=== PATIENT | male | born 1960 | race Caucasian/White ===

== ENCOUNTER 2016-04-21 13:59 | Emergency (ER) | payer OTHER ==
[~2016-04-21 13:59] MED LIST: ASPI81TA45 PO; DEPA125T PO; FLUO-1 PO; GABA100C2 PO; RESPERDAL PO
[2016-04-21 14:13] VITALS: BP 146/88; PULSE 94; RESP 16; TEMP 98.4; O2SAT 98
--- NOTE | 2016-04-21 14:20 | PD ---
HPI Chief Complaint: Psychiatric Symptoms Time Seen by Provider: 14:15 Travel History International Travel<30 days: No Contact w/Intl Traveler<30days: No History of Present Illness HPI 55-year-old male presents to the emergency Department under Esparza act by local police. According the Isaias, the patient has been depressed. He had suicidal ideations of jumping off the 11th floor. The patient states that he has been depressed for the last few days. He does report a history of depression. He denies hurting himself in any way. Patient denies any history of suicide attempts. He states that he was feeling suicidal previously, but states right now he is not feeling is vital. Patient states he drinks a sixpack of alcohol a day. He also smokes tobacco and marijuana. He states he has drinks 6 packs a sixpack today already. Patient does state that he is having chronic abdominal pain that he's had for months. He states is in the right upper quadrant. He also reports bright red blood in his stool for over a month. Patient states that he "eats Tylenol" due to chronic pain. Does report a history of hypertension and CVA 2, but takes no chronic medications. PFSH Past Medical History Arthritis: Yes (KNEES AND ANKLES) Asthma: No Bipolar Disorder: Yes Anxiety: Yes Depression: Yes Heart Rhythm Problems: No Cancer: No Cardiovascular Problems: Yes High Cholesterol: No Chest Pain: Yes Congestive Heart Failure: No COPD: No Cerebrovascular Accident: Yes (X 2 RIGHT SIDE WEAKNESS) Diabetes: No Diminished Hearing: No Endocrine: No GERD: No Genitourinary: No Hiatal Hernia: No Hypertension: Yes Insomnia: Yes Kidney Stones: No Musculoskeletal: Yes Neurologic: No Psychiatric: Yes Reproductive: No Respiratory: No Immunizations Current: No Migraines: No Pancreatitis: Yes (DENIES, IN PT HX) Renal Failure: No Schizophrenia: Yes Seizures: No Sleep Apnea: No Thyroid Disease: No Ulcer: No Past Surgical History Abdominal Surgery: No Arteriovenous Shunt: No Cardiac Surgery: No Ear Surgery: No Endocrine Surgery: No Eye Surgery: No Genitourinary Surgery: No Insulin Pump: No Oral Surgery: No Thoracic Surgery: No Tonsillectomy: Yes Other Surgery: Yes Social History Alcohol Use: Yes (ADMITS TO DRINKING 12 BEERS DAILY) Tobacco Use: Yes (2 PPD) Substance Use: Yes (A LITTLE WEED ONCE IN A WHILE) Allergies-Medications (Allergen,Severity, Reaction): Coded Allergies: Morphine (Verified Allergy, Severe, Rash, 04/21/16) Reported Meds & Prescriptions Reported Meds & Active Scripts Active No Active Prescriptions or Reported Medications Review of Systems Except as stated in HPI: all other systems reviewed are Neg Physical Exam Narrative GENERAL: Well-developed well-nourished male patient, ambulatory. Afebrile. SKIN: Warm and dry. HEAD: Normocephalic. Atraumatic. EYES: No scleral icterus. No injection or drainage. NECK: Supple, trachea midline. No JVD or lymphadenopathy. CARDIOVASCULAR: Regular rate and rhythm without murmurs, gallops, or rubs. RESPIRATORY: Breath sounds equal bilaterally. No accessory muscle use. Lungs sounds are clear to auscultation. GASTROINTESTINAL: Abdomen soft and nondistended. Patient has tenderness of the right upper quadrant. MUSCULOSKELETAL: No cyanosis, or edema. BACK: Nontender without obvious deformity. No CVA tenderness. PSYCHIATRIC: No delusional thought processes. No hallucinations. Data Data Last Documented VS Vital Signs Date Time Temp Pulse Resp B/P Pulse Ox O2 Delivery O2 Flow Rate FiO2 04/21/16 19:27 84 18 04/21/16 19:27 142/87 95 Room Air 04/21/16 14:13 98.4 Orders Complete Blood Count With Diff (04/21/16 14:14) Comprehensive Metabolic Panel (04/21/16 14:14) Drug Screen, Random Urine (04/21/16 14:14) Alcohol (Ethanol) (04/21/16 14:14) Salicylates (Aspirin) (04/21/16 14:14) Tylenol (Acetaminophen) (04/21/16 14:14) Psych Screen (04/21/16 14:14) Us Abdomen Gallbladder (04/21/16 ) Diet Regular Basic (04/21/16 Dinner) Lipase (04/21/16 14:50) Ct Abd/Pel W Iv Contrast(Rout) (04/21/16 ) Labs Laboratory Tests Test 04/21/16 04/21/16 14:11 14:50 Urine Opiates Screen NEG Urine Barbiturates Screen NEG Urine Amphetamines Screen NEG Urine Benzodiazepines Screen NEG Urine Cocaine Screen NEG Urine Cannabinoids Screen NEG White Blood Count 6.3 TH/MM3 Red Blood Count 5.03 MIL/MM3 Hemoglobin 17.3 GM/DL Hematocrit 49.0 % Mean Corpuscular Volume 97.5 FL Mean Corpuscular Hemoglobin 34.4 PG Mean Corpuscular Hemoglobin 35.3 % Concent Red Cell Distribution Width 13.1 % Platelet Count 216 TH/MM3 Mean Platelet Volume 8.1 FL Neutrophils (%) (Auto) 44.5 % Lymphocytes (%) (Auto) 47.0 % Monocytes (%) (Auto) 7.6 % Eosinophils (%) (Auto) 0.4 % Basophils (%) (Auto) 0.5 % Neutrophils # (Auto) 2.8 TH/MM3 Lymphocytes # (Auto) 3.0 TH/MM3 Monocytes # (Auto) 0.5 TH/MM3 Eosinophils # (Auto) 0.0 TH/MM3 Basophils # (Auto) 0.0 TH/MM3 CBC Comment DIFF FINAL Differential Comment Sodium Level 143 MEQ/L Potassium Level 4.0 MEQ/L Chloride Level 110 MEQ/L Carbon Dioxide Level 23.0 MEQ/L Anion Gap 10 MEQ/L Blood Urea Nitrogen 5 MG/DL Creatinine 0.67 MG/DL Estimat Glomerular Filtration 122 ML/MIN Rate Random Glucose 94 MG/DL Calcium Level 8.5 MG/DL Total Bilirubin 0.2 MG/DL Aspartate Amino Transf 45 U/L (AST/SGOT) Alanine Aminotransferase 46 U/L (ALT/SGPT) Alkaline Phosphatase 58 U/L Total Protein 8.0 GM/DL Albumin 3.9 GM/DL Lipase 1383 U/L Salicylates Level 4.6 MG/DL Acetaminophen Level LESS THAN 2.0 MCG/ML Ethyl Alcohol Level 297 MG/DL MDM Medical Decision Making Medical Screen Exam Complete: Yes Emergency Medical Condition: Yes Medical Record Reviewed: Yes Interpretation(s) RUQ US- CONCLUSION: 1. No acute abnormality seen of the gallbladder/right upper quadrant. 2. Small benign-appearing cyst of the right kidney incidentally noted. Differential Diagnosis Depression versus anxiety versus bipolar versus chronic abdominal pain versus cholelithiasis versus lower GI bleed Narrative Course 55-year-old male presents to the emergency department her Esparza to the local police for suicidal ideation and depression. On exam, he complains of chronic right upper quadrant pain for over a month as well as chronic bright red blood in his stool for over a month. CBC, CMP, lipase, alcohol level, urine drug screen, Tylenol level, salicylate level are ordered and pending. Patient declines Hemoccult. CBC shows no evidence of anemia, hemoglobin 17.3, hematocrit 49.0. CMP shows elevated AST of 45. Lipase is 1383. Alcohol level is 297. Tylenol level is 297. Salicylate level is 4.6. Urine drug screen is negative. RUQ US shows No acute abnormality seen of the gallbladder/right upper quadrant; small benign- appearing cyst of the right kidney incidentally noted. 1944 - Patient eloped while waiting for CT. Nurse will notify police that patient eloped. Diagnosis Primary Impression: At risk for elopement from healthcare setting Scripts No Active Prescriptions or Reported Meds Disposition: 07 AGAINST MEDICAL ADVICE Mago Alejandra Apr 21, 2016 14:20
--- NOTE | 2016-04-21 15:32 | RADRPT ---
EXAM DATE/TIME: 04/21/2016 15:01 [facility] COMPARISON: No previous studies available for comparison. INDICATIONS : Right upper quadrant pain. MEDICAL HISTORY : Hypertension. Esparza Act. Bipolar. ETOH. CVA. SURGICAL HISTORY : Tonsillectomy. ENCOUNTER: Initial ACUITY: 3 months PAIN SCORE: 8/10 LOCATION: Right upper quadrant MEASUREMENTS: LIVER: 16.5 cm length COMMON DUCT: 4 mm RIGHT KIDNEY: 10.5 x 5.5 x 5.6 cm FINDINGS: LIVER: Normal echotexture without focal lesion or ductal dilatation. There is normal flow velocity and direc tion in the main portal vein. COMMON DUCT: No intraluminal mass or stone visualized. GALLBLADDER: Contains no stones, demonstrates no wall thickening or pericholecystic fluid. PANCREAS: The visualized portions are within normal limits. RIGHT KIDNEY: 14 mm lower pole cyst. No hydronephrosis. CONCLUSION: 1. No acute abnormality seen of the gallbladder/right upper quadrant. 2. Small benign-appearing cyst of the right kidney incidentally noted. True Dumont MD on April 21, 2016 at 15:29 Board Certified Radiologist. This report was verified electronically.
[2016-04-21 15:33] LABS: AUTOMATED NEUTROPHIL # 2.8 TH/MM3 (1.8-7.7); BASOPHIL % 0.5 % (0.0-2.0); EOSINOPHIL % 0.4 % (0.0-4.0); HEMO FLAGS DIFF FINAL; MEAN CELL VOLUME 97.5 FL (80.0-100.0); MEAN CORPUSCULAR HEMOGLOBIN 34.4 PG (27.0-34.0); MEAN CORPUSCULAR HGB CONC 35.3 % (32.0-36.0); MONO % 7.6 % (0.0-8.0); NEUT % 44.5 % (16.0-70.0); PLATELET COUNT 216 TH/MM3 (150-450); RED BLOOD COUNT 5.03 MIL/MM3 (4.50-5.90); RED CELL DISTRIBUTION WIDTH 13.1 % (11.6-17.2); WHITE BLOOD COUNT 6.3 TH/MM3 (4.0-11.0)
[2016-04-21 15:37] LABS: AMPHETAMINE, URINE NEG (NEG); BARBITURATES, URINE NEG (NEG); COCAINE, URINE NEG (NEG)
[2016-04-21 16:12] LABS: ALT (GPT) 46 U/L (12-78); ANION GAP 10 MEQ/L (5-15); AST (GOT) 45 U/L (15-37); BLOOD UREA NITROGEN 5 MG/DL (7-18); CHLORIDE 110 MEQ/L (98-107); GLOMERULAR FILTRATION RATE 122 ML/MIN (>89); SODIUM (NA) 143 MEQ/L (136-145)
[2016-04-21 16:15] LABS: ALKALINE PHOSPHATASE 58 U/L (45-117); TOTAL BILIRUBIN ADULT 0.2 MG/DL (0.2-1.0)
[2016-04-21 16:16] LABS: ACETAMINOPHEN LESS THAN 2.0 MCG/ML (10.0-30.0)
[2016-04-21 19:27] VITALS: BP 142/87; PULSE 86; RESP 16; O2SAT 95
[2016-04-23] MEDS ORDERED: IBUP800T23 PO (11:46)
[2016-04-23] MEDS ORDERED: CYCL1TAB29 PO (11:46)
== END 2016-04-22 05:54 | disposition left against medical advice (07) ==
LOC: NEDAMB 13:59 → NEPE 04-22 05:54
DX: Z53.21 Procedure and treatment not carried out due to patient leaving prior to being seen by health care provider (principal); K92.1 Melena; R10.9 Unspecified abdominal pain; I10 Essential (primary) hypertension; F17.210 Nicotine dependence, cigarettes, uncomplicated; F12.10 Cannabis abuse, uncomplicated; F10.10 Alcohol abuse, uncomplicated
CPT/HCPCS: 76705; 80053; 80307; 80320; 80329; 83690; 85025; G0480

== ENCOUNTER 2016-04-23 09:33 | Emergency (ER) | payer SELFPAY ==
[~2016-04-23] VITALS: Ht 177.8 cm; Wt 82.0 kg
[2016-04-23 09:35] VITALS: BP 176/111; PULSE 78; RESP 16; TEMP 97.7; O2SAT 98
[2016-04-23] MEDS ORDERED: CYCLOBENZAPRINE HCL 10 MG TAB PO ONE (11:00)
--- NOTE | 2016-04-23 11:13 | PD ---
HPI Chief Complaint: Back/ Neck Pain or Injury Time Seen by Provider: 10:50 Travel History International Travel<30 days: No Contact w/Intl Traveler<30days: No Traveled to known affect area: No History of Present Illness HPI Patient is a 55-year-old male who presented to the emergency department for evaluation of low back pain. Patient denies any injury or trauma, he states it' s been going on for approximately one week. He states she's been taking Tylenol for pain. Has had no relief. Patient also reports being in the emergency department a few days ago due to abdominal pain but denies any abdominal pain at this time. He states his pain is a 6 out of 10 and describes as cramping and aching. Patient denies any bladder or bowel incontinence, no saddle paresthesia, no weakness in his lower extremities. PFSH Past Medical History Arthritis: Yes (KNEES AND ANKLES) Asthma: No Bipolar Disorder: Yes Anxiety: Yes Depression: Yes Heart Rhythm Problems: No Cancer: No Cardiovascular Problems: Yes High Cholesterol: No Chest Pain: Yes Congestive Heart Failure: No COPD: No Cerebrovascular Accident: Yes (X 2 RIGHT SIDE WEAKNESS) Diabetes: No Diminished Hearing: No Endocrine: No GERD: No Genitourinary: No Hiatal Hernia: No Hypertension: Yes Insomnia: Yes Kidney Stones: No Musculoskeletal: Yes Neurologic: No Psychiatric: Yes Reproductive: No Respiratory: No Immunizations Current: No Migraines: No Pancreatitis: Yes (DENIES, IN PT HX) Renal Failure: No Schizophrenia: Yes Seizures: No Sleep Apnea: No Thyroid Disease: No Ulcer: No Past Surgical History Abdominal Surgery: No Arteriovenous Shunt: No Cardiac Surgery: No Ear Surgery: No Endocrine Surgery: No Eye Surgery: No Genitourinary Surgery: No Insulin Pump: No Oral Surgery: No Thoracic Surgery: No Tonsillectomy: Yes Other Surgery: Yes Social History Alcohol Use: Yes (ADMITS TO DRINKING 12 BEERS DAILY) Tobacco Use: Yes (2 PPD) Substance Use: Yes (MARIJUANA) Allergies-Medications (Allergen,Severity, Reaction): Coded Allergies: Morphine (Verified Allergy, Severe, Rash, 04/23/16) Reported Meds & Prescriptions Reported Meds & Active Scripts Active No Active Prescriptions or Reported Medications Review of Systems Except as stated in HPI: all other systems reviewed are Neg Musculoskeletal: Positive: Myalgias, Cramping, Pain Neurologic: No: Weakness Psychiatric: No: Suicidal Ideations, Homicidal Ideation Physical Exam Narrative GENERAL: Well, well-nourished, alert male. Resting comfortably in no acute distress. SKIN: Warm and dry. HEAD: Atraumatic. Normocephalic. EYES: Pupils equal and round. No scleral icterus. No injection or drainage. ENT: No nasal bleeding or discharge. Mucous membranes pink and moist. NECK: Trachea midline. No JVD. CARDIOVASCULAR: Regular rate and rhythm. No murmur appreciated. RESPIRATORY: No accessory muscle use. Clear to auscultation. Breath sounds equal bilaterally. GASTROINTESTINAL: Abdomen soft, non-tender, nondistended. Hepatic and splenic margins not palpable. MUSCULOSKELETAL: No obvious deformities. No clubbing. No cyanosis. No edema. Illness palpation in paraspinal musculature in the lumbar region right is worse on the left. 5/5 muscle strength in bilateral lower extremities. Patient is neurovascularly intact. NEUROLOGICAL: Awake and alert. No obvious cranial nerve deficits. Motor grossly within normal limits. Normal speech. PSYCHIATRIC: Appropriate mood and affect; insight and judgment normal. Data Data Last Documented VS Vital Signs Date Time Temp Pulse Resp B/P Pulse Ox O2 Delivery O2 Flow Rate FiO2 04/23/16 09:35 97.7 78 16 176/111 98 Room Air Orders Cyclobenzaprine (Flexeril) (04/23/16 11:00) MDM Medical Decision Making Medical Screen Exam Complete: Yes Emergency Medical Condition: Yes Medical Record Reviewed: Yes Interpretation(s) Vital Signs Date Time Temp Pulse Resp B/P Pulse Ox O2 Delivery O2 Flow Rate FiO2 04/23/16 09:35 97.7 78 16 176/111 98 Room Air Differential Diagnosis Strain versus sprain versus spasm versus discogenic pain versus other Narrative Course Patient is a 55-year-old male who presented to emergency department for evaluation of low back pain. He also reports being in the emergency department a few days ago stating that he had to leave and left. He reports at that time he had abdominal pain which has since resolved. Upon review of medical records patient was brought in on April 21, 2016 under Esparza act for suicidal ideations. Patient was clinically intoxicated at that time, ultrasound of gallbladder was negative, patient had eloped from the emergency department. At this time he denies any suicidal or homicidal ideations. He states that he quit drinking, and is trying to get cleaned up. His physical examination today is consistent with lumbar strain, spasm, he was given Flexeril in the emergency department. Patient reports some improvement in his back pain with the Flexeril. Again patient denies any suicidal or homicidal ideations. Patient encouraged follow- up with his primary care provider return to emergency department new or worsening symptoms. He was encouraged to continue to avoid alcohol intake. He was encouraged to return to emergency department if he began to feel depressed or suicidal. Patient verbalized understanding of instructions. Patient is stable for discharge. Diagnosis Primary Impression: Spasm of lumbar paraspinous muscle Additional Impression: Strain of lumbar paraspinal muscle Qualified Code: S39.012A - Strain of lumbar paraspinal muscle, initial encounter Referrals: [facility] Primary Care Physician [facility] Patient Instructions: General Instructions, Muscle Spasm (ED), Muscle Strain ( ED) Additional Instructions: Return to emergency department initially for any new or worsening symptoms Continue to avoid alcohol Return to emergency department if you have any worsening depression or suicidal ideations Can follow-up with the [facility] for further alcohol dependence treatment Take medications as directed Apply warm moist heat to affected area, continue range of motion exercises, avoid bed rest. Med/Other Pt SpecificInfo: Prescription(s) given Scripts Cyclobenzaprine (Flexeril)10 Mg Tab10 Mg PO TID PRN (MUSCLE SPASM) 10 Days Ref 0 Prov:Cindy Bah 04/23/16 Ibuprofen 800 Mg [id number] Mg PO Q8H PRN (Pain/Inflammation) #60 TAB Ref 0 Prov:Cindy Bah 04/23/16 Disposition: 01 DISCHARGE HOME Condition: Stable Cindy Bah Apr 23, 2016 11:13
[2016-04-23] MEDS ORDERED: IBUP800T23 PO (11:46)
[2016-04-23] MEDS ORDERED: CYCL1TAB29 PO (11:46)
== END 2016-04-23 12:09 | disposition home or self-care (01) ==
LOC: NEPB 09:33
DX: M62.830 Muscle spasm of back (principal); S39.012A Strain of muscle, fascia and tendon of lower back, initial encounter; I10 Essential (primary) hypertension; F10.10 Alcohol abuse, uncomplicated; F17.210 Nicotine dependence, cigarettes, uncomplicated; F12.90 Cannabis use, unspecified, uncomplicated; Z86.73 Personal history of transient ischemic attack (TIA), and cerebral infarction without residual deficits
CPT/HCPCS: 99283

== ENCOUNTER 2016-11-12 20:46 | Emergency (ER) | payer OTHER ==
[~2016-11-12 20:46] MED LIST changes: -ASPI81TA45 PO; +CYCL1TAB29 PO; -DEPA125T PO; -FLUO-1 PO; -GABA100C2 PO; +IBUP800T23 PO; -RESPERDAL PO
[2016-11-12 20:58] VITALS: BP 121/82; PULSE 89; RESP 18; TEMP 97.8
--- NOTE | 2016-11-12 21:28 | PD ---
HPI Chief Complaint: Psychiatric Symptoms Time Seen by Provider: 21:14 Travel History International Travel<30 days: No Contact w/Intl Traveler<30days: No Traveled to known affect area: No History of Present Illness HPI This patient is brought in under police Espraza act. Patient was having suicidal ideation. Patient has history of depression. Symptoms of moderate severity. He is a heavy drinker on a daily basis. He was drinking heavily today. He denies any drugs or substances other than alcohol. No alleviating factors. Duration 2 weeks. PFSH Past Medical History Arthritis: Yes (KNEES AND ANKLES) Asthma: No Bipolar Disorder: Yes Anxiety: Yes Depression: Yes Heart Rhythm Problems: No Cancer: No Cardiovascular Problems: Yes High Cholesterol: No Chest Pain: Yes Congestive Heart Failure: No COPD: No Cerebrovascular Accident: Yes Diabetes: No Diminished Hearing: No Endocrine: No GERD: No Genitourinary: No Hiatal Hernia: No Hypertension: Yes Insomnia: Yes Kidney Stones: No Musculoskeletal: Yes Neurologic: No Psychiatric: Yes Reproductive: No Respiratory: No Immunizations Current: No Migraines: No Pancreatitis: Yes (DENIES, IN PT HX) Renal Failure: No Schizophrenia: Yes Seizures: No Sleep Apnea: No Thyroid Disease: No Ulcer: No Past Surgical History Abdominal Surgery: No Arteriovenous Shunt: No Cardiac Surgery: No Ear Surgery: No Endocrine Surgery: No Eye Surgery: No Genitourinary Surgery: No Insulin Pump: No Oral Surgery: No Thoracic Surgery: No Tonsillectomy: Yes Other Surgery: Yes Social History Alcohol Use: Yes (ADMITS TO DRINKING 12 BEERS DAILY) Tobacco Use: Yes (2 PPD) Substance Use: Yes (MARIJUANA) Allergies-Medications (Allergen,Severity, Reaction): Coded Allergies: Morphine (Verified Allergy, Severe, Rash, 11/12/16) Reported Meds & Prescriptions Reported Meds & Active Scripts Active No Active Prescriptions or Reported Medications Review of Systems General / Constitutional: No: Fever Eyes: No: Visual changes HENT: No: Headaches Cardiovascular: No: Chest Pain or Discomfort Respiratory: No: Shortness of Breath Gastrointestinal: No: Abdominal Pain Genitourinary: No: Dysuria Musculoskeletal: No: Pain Skin: Positive Rash, Positive Itching Neurologic: No: Weakness Psychiatric: Positive: Depression, Suicidal Ideations, Substance Abuse Endocrine: No: Polydipsia Hematologic/Lymphatic: No: Easy Bruising Physical Exam Narrative GENERAL: Well-nourished, well-developed patient in no apparent distress. SKIN: Focused skin assessment reveals diffuse scabbed lesions on both forearms also on the legs. Skin is Warm and dry. HEAD: Atraumatic. Normocephalic. EYES: Pupils equal and round. No scleral icterus. No injection or drainage. ENT: No nasal bleeding or discharge. Mucous membranes pink and moist. NECK: Trachea midline. No JVD. CARDIOVASCULAR: Regular rate and rhythm. No murmur appreciated. RESPIRATORY: No accessory muscle use. Clear to auscultation. Breath sounds equal bilaterally. GASTROINTESTINAL: Abdomen soft, non-tender, nondistended. Hepatic and splenic margins not palpable. MUSCULOSKELETAL: No obvious deformities. No clubbing. No cyanosis. No edema. NEUROLOGICAL: Awake and alert. No obvious cranial nerve deficits. Motor grossly within normal limits. Normal speech. PSYCHIATRIC: Depressed mood and flat affect; insight and judgment poor . Data Data Last Documented VS Vital Signs Date Time Temp Pulse Resp B/P Pulse Ox O2 Delivery O2 Flow Rate FiO2 11/12/16 20:58 97.8 89 18 121/82 Orders Complete Blood Count With Diff (11/12/16 21:25) Comprehensive Metabolic Panel (11/12/16 21:25) Iv Access Insert/Monitor (11/12/16 21:25) Psych Screen (11/12/16 21:25) Drug Screen, Random Urine (11/12/16 21:25) Alcohol (Ethanol) (11/12/16 21:25) MDM Medical Decision Making Medical Screen Exam Complete: Yes Emergency Medical Condition: Yes Medical Record Reviewed: Yes Differential Diagnosis Alcohol intoxication, depression, suicidal ideation Narrative Course I have reviewed the patient's electronic medical record. Medical screening workup has been ordered and will be reviewed when complete. I Have ordered psychiatric screening as he is here under Esparza act May have bed bugs or just a lot of picked at scabbed lesions difficult to say. They do not require emergent treatment Diagnosis Primary Impression: Depression with suicidal ideation Additional Impression: Alcoholism Scripts No Active Prescriptions or Reported Meds Jeremías Bateman MD Nov 12, 2016 21:28
[2016-11-12 23:41] LABS: AMPHETAMINE, URINE NEG (NEG); BARBITURATES, URINE NEG (NEG); COCAINE, URINE NEG (NEG)
[2016-11-13 00:25] LABS: AUTOMATED NEUTROPHIL # 3.9 TH/MM3 (1.8-7.7); BASOPHIL % 0.5 % (0.0-2.0); EOSINOPHIL # 0.4 TH/MM3 (0-0.4); EOSINOPHIL % 5.1 % (0.0-4.0); HEMATOCRIT 47.6 % (39.0-51.0); HEMO FLAGS DIFF FINAL; LYMPH % 31.4 % (9.0-44.0); LYMPHOCYTE # 2.3 TH/MM3 (1.0-4.8); MEAN CELL VOLUME 99.9 FL (80.0-100.0); MEAN CORPUSCULAR HEMOGLOBIN 35.7 PG (27.0-34.0); MEAN CORPUSCULAR HGB CONC 35.7 % (32.0-36.0); PLATELET COUNT 176 TH/MM3 (150-450); RED BLOOD COUNT 4.77 MIL/MM3 (4.50-5.90); RED CELL DISTRIBUTION WIDTH 12.7 % (11.6-17.2); WHITE BLOOD COUNT 7.4 TH/MM3 (4.0-11.0)
[2016-11-13 00:37] LABS: ANION GAP 11 MEQ/L (5-15); AST (GOT) 90 U/L (15-37); BICARBONATE 25.2 MEQ/L (21.0-32.0); BLOOD UREA NITROGEN 7 MG/DL (7-18); CHLORIDE 107 MEQ/L (98-107); GLOMERULAR FILTRATION RATE 105 ML/MIN (>89); SODIUM (NA) 143 MEQ/L (136-145)
[2016-11-13 00:40] LABS: ALKALINE PHOSPHATASE 61 U/L (45-117); ALT (GPT) 55 U/L (12-78); TOTAL BILIRUBIN ADULT 0.4 MG/DL (0.2-1.0)
[2016-11-13] MEDS ORDERED: FLUMAZENIL 0.5 MG/5 ML VIAL IV PUSH PRN (02:45)
[2016-11-13] MEDS ORDERED: LORazepam 2 MG TAB PO PRN (02:45)
[2016-11-13] MEDS ORDERED: LORazepam 1 MG TAB PO PRN (02:45)
[2016-11-13] MEDS ORDERED: LORazepam 2 MG/ML VIAL IV PUSH PRN ×4 (02:45)
[2016-11-13 04:53] VITALS: BP 122/68; PULSE 80; RESP 16
[2016-11-13 07:20] VITALS: BP 135/91; PULSE 86; RESP 16; O2SAT 97
--- NOTE | 2016-11-13 13:27 | PD.PSY.CON ---
Provisional Diagnosis Admission Date [place] I. Alcohol use disorder, alcohol induced mood disorder [place] II. deferred [place] III. No Significant medical history History of Present Illness Service Psychiatry Consult Requested By Primary Care Physician No Primary Care Physician HPI The patient is a 56-year-old man, homeless, single, unemployed, with psychiatric history of alcohol use disorder, no psychiatric hospitalizations, symmetrical medical history, brought in under police Esparza act. Patient was having suicidal ideation. Patient has history of depression. Symptoms of moderate severity. He is a heavy drinker on a daily basis. He was drinking heavily yesterday, BAL was 256. Today for psychiatric evaluation, patient reports depression, frequent sadness, low energy, insomnia, generalized pessimism, in the context of homelessness, financial stressors, and continues alcohol use disorder. Patient reports that he is interested in a detox/ rehabilitation program. Denies the use of illicit drugs, reports daily use of alcohol, 6-10 beers. Review of Systems Constitutional: DENIES: Diaphoretic episodes, Fatigue, Fever, Weight gain, Weight loss, Chills, Dizziness, Change in appetite, Night Sweats Endocrine: DENIES: Heat/cold intolerance, Polydipsia, Polyuria, Polyphagia Eyes: DENIES: Blurred vision, Diplopia, Eye inflammation, Eye pain, Vision loss , Photosensitivity, Double Vision Ears, nose, mouth, throat: DENIES: Tinnitus, Hearing loss, Vertigo, Nasal discharge, Oral lesions, Throat pain, Hoarseness, Ear Pain, Running Nose, Epistaxis, Sinus Pain, Toothache, Odynophagia Respiratory: DENIES: Apneas, Cough, Snoring, Wheezing, Hemoptysis, Sputum production, Shortness of breath Cardiovascular: DENIES: Chest pain, Palpitations, Syncope, Dyspnea on Exertion , PND, Lower Extremity Edema, Orthopnea, Claudication Gastrointestinal: DENIES: Abdominal pain, Black stools, Bloody stools, Constipation, Diarrhea, Nausea, Vomiting, Difficulty Swallowing, Anorexia Musculoskeletal: DENIES: Joint pain, Muscle aches, Stiffness, Joint Swelling, Back pain, Neck pain Integumentary: DENIES: Abnormal pigmentation, Nail changes, Pruritus, Rash Hematologic/lymphatic: DENIES: Bruising, Lymphadenopathy Immunologic/allergic: DENIES: Eczema, Urticaria Neurologic: DENIES: Abnormal gait, Headache, Localized weakness, Paresthesias, Seizures, Speech Problems, Tremor, Poor Balance Psychiatric: DENIES: Anxiety, Confusion, Mood changes, Depression, Hallucinations, Agitation, Suicidal Ideation, Homicidal Ideation, Delusions Past Family Social History Coded Allergies: Morphine (Verified Allergy, Severe, Rash, 11/12/16) Discontinued Scripts Cyclobenzaprine (Flexeril)10 Mg Tab10 Mg PO TID PRN (MUSCLE SPASM) 10 Days Ref 0 Prov:Cindy Bah NANCY 04/23/16 Ibuprofen 800 Mg [id number] Mg PO Q8H PRN (Pain/Inflammation) #60 TAB Ref 0 Prov:Cindy Bah Emmanuelle CRUZ 04/23/16 Patient's Strengths (min. 2) The patient is from [place], he is homeless, single, unemployed, highest level of education is 10th grade Physical Exam Vital Signs Vital Signs Date Time Temp Pulse Resp B/P Pulse Ox O2 Delivery O2 Flow Rate FiO2 11/13/16 07:20 86 16 135/91 97 Room Air 11/12/16 20:58 97.8 Mental Status Examination Speech: Unremarkable Orientation: x3 Memory: Unremarkable Thought Process: Logical Thought Content: Unremarkable Hallucination Type: None Suicidal Ideation: No Previous Suicide Attempts: No Homicidal Ideation: No Judgment: WNL Mood: Appropriate Motor Activity: Normal gait Assessment & Plan Problem List: (1) Alcohol abuse with alcohol-induced mood disorder Assessment & Plan: Patient does not meet criteria for psychiatric admission at this moment. Recent suicidal statement and persistent depression is related with his severe alcoholism. He denies suicidal ideation, homicidal ideation. He shows interest in be discharged to a detox. Referral for a [facility] act was provided. no admissions indicated. Esparza act will be lifted. ICD Code: F10.14 Assessment & Plan Estimated LOS: Cole Ngo MD Nov 13, 2016 13:27
== END 2016-11-13 09:12 | disposition home or self-care (01) ==
LOC: NEPD 20:46
DX: F32.9 Major depressive disorder, single episode, unspecified (principal); R45.851 Suicidal ideations; F10.20 Alcohol dependence, uncomplicated; M13.80 Other specified arthritis, unspecified site; F31.9 Bipolar disorder, unspecified; F41.9 Anxiety disorder, unspecified; Z86.73 Personal history of transient ischemic attack (TIA), and cerebral infarction without residual deficits; I10 Essential (primary) hypertension; F20.9 Schizophrenia, unspecified
CPT/HCPCS: 80053; 80307; 85025; 99284

== ENCOUNTER 2016-12-04 17:13 | Emergency (ER) | payer SELFPAY ==
[~2016-12-04] VITALS: Ht 177.8 cm; Wt 83.2 kg
[2016-12-04 17:23] VITALS: BP 117/82; PULSE 72; RESP 16; TEMP 98.3; O2SAT 97
[2016-12-04 19:30] VITALS: BP 119/68; PULSE 60; RESP 18; TEMP 98; O2SAT 98
--- NOTE | 2016-12-04 19:57 | PD ---
HPI . Left foot pain Chief Complaint: Edema Time Seen by Provider: 19:47 Travel History International Travel<30 days: No Contact w/Intl Traveler<30days: No Traveled to known affect area: No History of Present Illness HPI This patient presents with the acute onset of left foot pain. It awakened him from sleep last night at 1 AM. He states that he was fine before he went to bed. He denies injury. 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 He has noticed that his pain is exacerbated by walking. He states he cannot move his toes because of pain. Pain is rated 10/ 10. He has noticed some bruising and swelling. He has taken Tylenol without relief. PFSH Past Medical History Hx Anticoagulant Therapy: No Arthritis: Yes (KNEES AND ANKLES) Asthma: No Bipolar Disorder: Yes Anxiety: Yes Depression: Yes Heart Rhythm Problems: No Cancer: No Cardiovascular Problems: Yes High Cholesterol: No Chest Pain: Yes Congestive Heart Failure: No COPD: No Cerebrovascular Accident: Yes (tia) Diabetes: No Diminished Hearing: No Endocrine: No GERD: No Genitourinary: No Hiatal Hernia: No Hypertension: Yes Insomnia: Yes Kidney Stones: No Musculoskeletal: Yes Neurologic: No Psychiatric: Yes Reproductive: No Respiratory: No Immunizations Current: No Migraines: No Pancreatitis: Yes (DENIES, IN PT HX) Renal Failure: No Schizophrenia: Yes Seizures: No Sleep Apnea: No Thyroid Disease: No Ulcer: No Tetanus Vaccination: < 5 Years Influenza Vaccination: No Past Surgical History Abdominal Surgery: No Arteriovenous Shunt: No Cardiac Surgery: No Ear Surgery: No Endocrine Surgery: No Eye Surgery: No Genitourinary Surgery: No Insulin Pump: No Oral Surgery: No Thoracic Surgery: No Tonsillectomy: Yes Other Surgery: Yes Social History Alcohol Use: No Tobacco Use: Yes (2 PPD) Substance Use: Yes (MARIJUANA OCCASIONALLY) Allergies-Medications (Allergen,Severity, Reaction): Coded Allergies: morphine (Unverified Allergy, Severe, Rash, 12/04/16) Reported Meds & Prescriptions Reported Meds & Active Scripts Active Naprosyn (Naproxen) 500 Mg Tab 500 Mg PO BID Review of Systems Except as stated in HPI: all other systems reviewed are Neg General / Constitutional: No: Fever, Chills Musculoskeletal: Positive: Edema, Pain (left foot) Skin: Positive Change in Pigmentation Physical Exam Narrative GENERAL: Awake and alert and in no acute distress. SKIN: Warm and dry. HEAD: Atraumatic. Normocephalic. EYES: Pupils equal and round. NECK: Trachea midline. CARDIOVASCULAR: Regular rate and rhythm. RESPIRATORY: No accessory muscle use. MUSCULOSKELETAL: No obvious deformities. No edema. He is tender in the dorsal aspect of the left forefoot near the MTP joints of the second, third and fourth digits. NEUROLOGICAL: Awake and alert. No obvious cranial nerve deficits. Motor grossly within normal limits. Normal speech. PSYCHIATRIC: Appropriate mood and affect; insight and judgment normal. Data Data Last Documented VS Vital Signs Date Time Temp Pulse Resp B/P Pulse Ox O2 Delivery O2 Flow Rate FiO2 12/04/16 20:51 18 12/04/16 20:30 57 119/76 97 Room Air 12/04/16 19:30 98.0 Orders Ketorolac Inj (Toradol Inj) (12/04/16 20:00) Foot, Complete ([id number]) (12/04/16 19:51) MDM Medical Decision Making Medical Screen Exam Complete: Yes Emergency Medical Condition: Yes Differential Diagnosis Differential diagnosis of joint pain includes but is not limited to arthritis, gout, sprain/strain, fracture, dislocation Narrative Course This patient presents with chief complaint of pain and swelling of the left foot. It is atraumatic. He has some tenderness on palpation of the left second and third MTP joints. X-ray is pending. Left foot x-ray to my interpretation is negative for fracture, subluxation or dislocation. Diagnosis Primary Impression: Left foot pain Patient Instructions: General Instructions, Musculoskeletal Pain (ED) Med/Other Pt SpecificInfo: Prescription(s) given Scripts Naproxen (Naprosyn)500 Mg Ruc307 Mg PO BID #60 TAB Ref 0 Prov:Devora Arias MD 12/04/16 Disposition: 01 DISCHARGE HOME Condition: Stable Devora Arias MD Dec 04, 2016 19:57
[2016-12-04] MEDS ORDERED: KETOROLAC TROMETHAMINE 60 MG/2 ML (IM) VIAL IM ONE (20:00)
[2016-12-04 20:30] VITALS: BP 119/76; PULSE 57; RESP 18; O2SAT 97
[2016-12-04] MEDS ORDERED: NAPR500 PO (20:37)
[2016-12-04 20:51] VITALS: RESP 18
--- NOTE | 2016-12-04 22:01 | RADRPT ---
EXAM DATE/TIME: 12/04/2016 20:21 [facility] COMPARISON: No previous studies available for comparison. INDICATIONS : Patient has had medial foot pain in left foot since last night. MEDICAL HISTORY : Hypertension. Esparza Act. Bipolar. ETOH. CVA. SURGICAL HISTORY : Tonsillectomy. ENCOUNTER: Initial ACUITY: 1 day PAIN SCORE: 8/10 LOCATION: Left Medial foot. FINDINGS: Three view examination of the left foot demonstrates no soft tissue swelling, dislocation, or fractur e. The tarsal bones appear intact. The interphalangeal and metatarsophalangeal joints are intact. The calcaneus is intact. Bony mineralization is normal. CONCLUSION: 1. No acute bony abnormality. No foreign body identified. Villa Arndt MD on December 04, 2016 at 21:59 Board Certified Radiologist. This report was verified electronically.
== END 2016-12-04 20:52 | disposition home or self-care (01) ==
LOC: PHED 17:13
DX: M79.672 Pain in left foot (principal); F17.200 Nicotine dependence, unspecified, uncomplicated
CPT/HCPCS: 73630; 96372; 99284; J1885

== ENCOUNTER 2017-03-25 11:00 | Emergency (ER) | payer OTHER ==
[~2017-03-25] VITALS: Ht 177.8 cm; Wt 75.0 kg
[~2017-03-25 11:00] MED LIST changes: -CYCL1TAB29 PO; -IBUP800T23 PO; +NAPR500 PO
[2017-03-25 11:03] VITALS: BP 125/77; PULSE 75; RESP 15; TEMP 98.4; O2SAT 99
[2017-03-25 11:25] VITALS: BP 140/83; PULSE 92; RESP 20; TEMP 98.4; O2SAT 94
[2017-03-25 11:49] VITALS: BP 131/84; PULSE 100; RESP 24; TEMP 98.7; O2SAT 98
--- NOTE | 2017-03-25 11:57 | PD ---
HPI Chief Complaint: Psychiatric Symptoms Time Seen by Provider: 11:47 Travel History International Travel<30 days: No Contact w/Intl Traveler<30days: No Traveled to known affect area: No History of Present Illness HPI 56-year-old chronic alcoholic presents the emergency department under the Esparza act from the police with reported suicidal ideation. Patient is complaining of generalized back pain from his neck to his bottom for the past 12 years. He reports urinating blood for the past 12 years as well. Patient recently through his girlfriend yesterday and is distraught. He admits to drinking at least a case of beer daily. He states 5 or 6 beers today. He was acutely intoxicated. He is tearful and dramatic. Patient is allergic to morphine. PFSH Past Medical History Hx Anticoagulant Therapy: No Arthritis: Yes (KNEES AND ANKLES) Asthma: No Bipolar Disorder: Yes Anxiety: Yes Depression: Yes Heart Rhythm Problems: No Cancer: No Cardiovascular Problems: Yes High Cholesterol: No Chest Pain: Yes Congestive Heart Failure: No COPD: No Cerebrovascular Accident: Yes (tia) Diabetes: No Diminished Hearing: No Endocrine: No GERD: No Genitourinary: No Hiatal Hernia: No Hypertension: Yes Insomnia: Yes Kidney Stones: No Musculoskeletal: Yes Neurologic: No Psychiatric: Yes Reproductive: No Respiratory: No Immunizations Current: No Migraines: No Pancreatitis: Yes (DENIES, IN PT HX) Renal Failure: No Schizophrenia: Yes Seizures: No Sleep Apnea: No Thyroid Disease: No Ulcer: No Past Surgical History Abdominal Surgery: No Arteriovenous Shunt: No Cardiac Surgery: No Ear Surgery: No Endocrine Surgery: No Eye Surgery: No Genitourinary Surgery: No Insulin Pump: No Oral Surgery: No Thoracic Surgery: No Tonsillectomy: Yes Other Surgery: Yes Social History Alcohol Use: Yes (5-6 DRINKS DAILY) Tobacco Use: Yes (2 PPD) Substance Use: Yes (MARIJUANA OCCASIONALLY) Allergies-Medications (Allergen,Severity, Reaction): Coded Allergies: morphine (Unverified Allergy, Severe, Rash, 03/25/17) Reported Meds & Prescriptions Reported Meds & Active Scripts Active No Active Prescriptions or Reported Medications Review of Systems ROS Limitations: Intoxication General / Constitutional: No: Fever Eyes: No: Visual changes HENT: No: Headaches Cardiovascular: No: Chest Pain or Discomfort Respiratory: No: Shortness of Breath Gastrointestinal: No: Abdominal Pain Genitourinary: No: Dysuria Musculoskeletal: No: Pain Skin: No Rash Neurologic: No: Weakness Psychiatric: No: Depression Endocrine: No: Polydipsia Hematologic/Lymphatic: No: Easy Bruising Physical Exam Exam Limitations: Intoxication Narrative GENERAL: Patient appears intoxicated and visibly upset but cooperative. He is disheveled and somewhat unclean. SKIN: Warm and dry. Normal turgor. Normal color. No obvious signs of trauma. HEAD: Atraumatic. Normocephalic. EYES: Pupils equal and round. No scleral icterus. No injection or drainage. ENT: No nasal bleeding or discharge. Mucous membranes pink and moist. Pharynx is clear. Airway is patent. NECK: Trachea midline. Supple and nontender. CARDIOVASCULAR: Regular rate and rhythm. RESPIRATORY: No accessory muscle use. Clear to auscultation. Breath sounds equal bilaterally. GASTROINTESTINAL: Abdomen soft, non-tender, nondistended. Hepatic and splenic margins not palpable. No CVA tenderness noted. MUSCULOSKELETAL: Extremities without clubbing, cyanosis, or edema. No obvious deformities. NEUROLOGICAL: Awake and alert. No obvious cranial nerve deficits. Motor grossly within normal limits. Five out of 5 muscle strength in the arms and legs. Normal speech. PSYCHIATRIC: Appropriate mood and affect; insight and judgment normal. Data Data Last Documented VS Vital Signs Date Time Temp Pulse Resp B/P (MAP) Pulse Ox O2 Delivery O2 Flow Rate FiO2 03/25/17 11:49 98.7 100 24 131/84 (100) 98 Room Air Orders Orders Complete Blood Count With Diff (03/25/17 11:54) Comprehensive Metabolic Panel (03/25/17 11:54) Urinalysis - C+S If Indicated (03/25/17 11:54) Iv Access Insert/Monitor (03/25/17 11:54) Psych Screen (03/25/17 11:54) Sodium Chloride 0.9% Flush (Ns Flush) (03/25/17 12:00) Lorazepam Inj (Ativan Inj) (03/25/17 12:00) Drug Screen, Random Urine (03/25/17 11:54) Alcohol (Ethanol) (03/25/17 11:54) Lipase (03/25/17 11:54) Sodium Chlor 0.9% 1000 Ml Inj (Ns 1000 M (03/25/17 12:00) Thiamine Inj (Thiamine Inj) (03/25/17 12:00) Chlordiazepoxide (Librium) (03/25/17 12:00) Diet Regular Basic (03/25/17 Lunch) Labs Laboratory Tests Test 03/25/17 12:00 White Blood Count 6.5 TH/MM3 Red Blood Count 4.72 MIL/MM3 Hemoglobin 16.3 GM/DL Hematocrit 46.3 % Mean Corpuscular Volume 98.1 FL Mean Corpuscular Hemoglobin 34.5 PG Mean Corpuscular Hemoglobin Concent 35.2 % Red Cell Distribution Width 13.4 % Platelet Count 174 TH/MM3 Mean Platelet Volume 7.6 FL Neutrophils (%) (Auto) 51.3 % Lymphocytes (%) (Auto) 39.8 % Monocytes (%) (Auto) 8.0 % Eosinophils (%) (Auto) 0.6 % Basophils (%) (Auto) 0.3 % Neutrophils # (Auto) 3.4 TH/MM3 Lymphocytes # (Auto) 2.6 TH/MM3 Monocytes # (Auto) 0.5 TH/MM3 Eosinophils # (Auto) 0.0 TH/MM3 Basophils # (Auto) 0.0 TH/MM3 CBC Comment DIFF FINAL Differential Comment Urine Color YELLOW Urine Turbidity CLEAR Urine pH 5.5 Urine Specific [place] 1.005 Urine Protein NEG mg/dL Urine Glucose (UA) TRACE mg/dL Urine Ketones NEG mg/dL Urine Occult Blood NEG Urine Nitrite NEG Urine Bilirubin NEG Urine Urobilinogen LESS THAN 2.0 MG/DL Urine Leukocyte Esterase NEG Urine RBC LESS THAN 1 /hpf Urine WBC LESS THAN 1 /hpf Urine Mucus FEW /lpf Microscopic Urinalysis Comment CULT NOT INDICATED Blood Urea Nitrogen 4 MG/DL Creatinine 0.70 MG/DL Random Glucose 100 MG/DL Total Protein 7.9 GM/DL Albumin 3.9 GM/DL Calcium Level 8.3 MG/DL Alkaline Phosphatase 54 U/L Aspartate Amino Transf (AST/SGOT) 87 U/L Alanine Aminotransferase (ALT/SGPT) 73 U/L Total Bilirubin 0.5 MG/DL Sodium Level 140 MEQ/L Potassium Level 4.0 MEQ/L Chloride Level 107 MEQ/L Carbon Dioxide Level 23.4 MEQ/L Anion Gap 10 MEQ/L Estimat Glomerular Filtration Rate 116 ML/MIN Lipase 1070 U/L Urine Opiates Screen NEG Urine Barbiturates Screen NEG Urine Amphetamines Screen NEG Urine Benzodiazepines Screen NEG Urine Cocaine Screen NEG Urine Cannabinoids Screen POS Ethyl Alcohol Level 344 MG/DL [facility] Medical Decision Making Medical Screen Exam Complete: Yes Emergency Medical Condition: Yes Medical Record Reviewed: Yes Differential Diagnosis Acute alcoholic intoxication. Acute depression. Suicidal ideation. Generalized back pain. Narrative Course Labs ordered including CBC, CMP, urinalysis, lipase, psychiatric labs per protocol. Serum alcohol level. IV access is obtained patient is given 100 mg thiamine IV as well as 1000 mg normal saline IV. Patient is given 1 mg lorazepam IV as well as 25 mg Librium by mouth. Regular meal is ordered. Psychiatric screening is ordered. CBC is unremarkable. CMP shows slight elevation of AST of 87. More specific as lipase of 1070. Urinalysis is normal. Urine tox screen is positive for marijuana otherwise clean. Serum alcohol level is 344. Patient was given Toradol 30 mg IV. Diagnosis Primary Impression: Alcohol abuse with alcohol-induced mood disorder Additional Impressions: Depression with suicidal ideation Alcoholism Pancreatitis, alcoholic, acute Qualified Codes: K85.20 - Alcohol induced acute pancreatitis without necrosis or infection Medical clearance for psychiatric admission Scripts No Active Prescriptions or Reported Meds Condition: Андрей Flores Mar 25, 2017 11:57
[2017-03-25] MEDS ORDERED: SODIUM CHLOR 0.9% 1000 ML INJ 1,000 ML IV ONE (12:00)
[2017-03-25] MEDS ORDERED: LORazepam 2 MG/ML VIAL IV PUSH ONE (12:00)
[2017-03-25] MEDS ORDERED: chlordiazePOXIDE 25 MG CAP PO ONE (12:00)
[2017-03-25] MEDS ORDERED: SODIUM CHLORIDE 0.9% FLUSH 10 ML FLUSH IVF PRN (12:00)
[2017-03-25] MEDS ORDERED: THIAMINE INJ 100 MG in SODIUM CHLORIDE 0.9% INJ 100 ML IV ONE (12:00)
[2017-03-25 12:37] LABS: AUTOMATED NEUTROPHIL # 3.4 TH/MM3 (1.8-7.7); BASOPHIL % 0.3 % (0.0-2.0); EOSINOPHIL % 0.6 % (0.0-4.0); HEMATOCRIT 46.3 % (39.0-51.0); HEMO FLAGS DIFF FINAL; LYMPH % 39.8 % (9.0-44.0); LYMPHOCYTE # 2.6 TH/MM3 (1.0-4.8); MEAN CELL VOLUME 98.1 FL (80.0-100.0); MEAN CORPUSCULAR HEMOGLOBIN 34.5 PG (27.0-34.0); MEAN CORPUSCULAR HGB CONC 35.2 % (32.0-36.0); NEUT % 51.3 % (16.0-70.0); PLATELET COUNT 174 TH/MM3 (150-450); RED BLOOD COUNT 4.72 MIL/MM3 (4.50-5.90); RED CELL DISTRIBUTION WIDTH 13.4 % (11.6-17.2); WHITE BLOOD COUNT 6.5 TH/MM3 (4.0-11.0)
[2017-03-25 12:51] LABS: BLOOD, URINE NEG (NEG); COMMENT (UR) CULT NOT INDICATED; CULTURE IF INDICATED CULT NOT INDICATED; GLUCOSE,URINE TRACE mg/dL (NEG); KETONE, URINE NEG (NEG); MUCUS URINE FEW /lpf (OCC); NITRITE,URINE NEG (NEG); PH, URINE 5.5 (5.0-8.5); URINE COLOR YELLOW (YELLW/STRAW)
[2017-03-25 13:00] LABS: ALKALINE PHOSPHATASE 54 U/L (45-117); ALT (GPT) 73 U/L (12-78); GLOMERULAR FILTRATION RATE 116 ML/MIN (>89); TOTAL BILIRUBIN ADULT 0.5 MG/DL (0.2-1.0)
[2017-03-25 13:02] LABS: ANION GAP 10 MEQ/L (5-15); BICARBONATE 23.4 MEQ/L (21.0-32.0); BLOOD UREA NITROGEN 4 MG/DL (7-18); CHLORIDE 107 MEQ/L (98-107); SODIUM (NA) 140 MEQ/L (136-145)
[2017-03-25 13:13] LABS: ALCOHOL 344 MG/DL (0-5); AST (GOT) 87 U/L (15-37)
[2017-03-25] MEDS ORDERED: FLUMAZENIL 0.5 MG/5 ML VIAL IV PUSH PRN (16:00)
[2017-03-25] MEDS ORDERED: LORazepam 2 MG/ML VIAL IV PUSH PRN ×4 (16:00)
[2017-03-25] MEDS ORDERED: NICOTINE 21 MG/24 HR PATCH T-DERMAL ONE (16:00)
[2017-03-25] MEDS ORDERED: LORazepam 2 MG TAB PO PRN (16:00)
[2017-03-25 16:22] VITALS: BP 134/83; PULSE 83; RESP 18; TEMP 97.9; O2SAT 96
[2017-03-25] MEDS: LORazepam 1 MG TAB PO PRN (21:51)
[2017-03-25 22:18] VITALS: BP 145/85; PULSE 94; RESP 18; TEMP 98.5; O2SAT 95
[2017-03-26 02:00] VITALS: BP 139/88; PULSE 82; RESP 18; TEMP 97.7; O2SAT 95
[2017-03-26] MEDS: LORazepam 1 MG TAB PO PRN (03:46)
[2017-03-26 06:19] VITALS: BP 151/90; PULSE 84; RESP 18; TEMP 98.2; O2SAT 97
[2017-03-26] MEDS ORDERED: IBUPROFEN 800 MG TAB PO ONE (08:15)
--- NOTE | 2017-03-26 10:21 | PD ---
Data Data Last Documented VS Vital Signs Date Time Temp Pulse Resp B/P (MAP) Pulse Ox O2 Delivery O2 Flow Rate FiO2 03/26/17 10:30 03/26/17 06:19 98.2 84 18 97 Room Air Orders Orders Complete Blood Count With Diff (03/25/17 11:54) Comprehensive Metabolic Panel (03/25/17 11:54) Urinalysis - C+S If Indicated (03/25/17 11:54) Iv Access Insert/Monitor (03/25/17 11:54) Psych Screen (03/25/17 11:54) Sodium Chloride 0.9% Flush (Ns Flush) (03/25/17 12:00) Lorazepam Inj (Ativan Inj) (03/25/17 12:00) Drug Screen, Random Urine (03/25/17 11:54) Alcohol (Ethanol) (03/25/17 11:54) Lipase (03/25/17 11:54) Sodium Chlor 0.9% 1000 Ml Inj (Ns 1000 M (03/25/17 12:00) Thiamine Inj (Thiamine Inj) (03/25/17 12:00) Chlordiazepoxide (Librium) (03/25/17 12:00) Diet Regular Basic (03/25/17 Lunch) Alcohol Withdrawal Asmt-Ciwa Q4HX18 (03/25/17 15:57) Flumazenil Inj (Romazicon Inj) (03/25/17 16:00) Lorazepam (Ativan) (03/25/17 16:00) Lorazepam Inj (Ativan Inj) (03/25/17 16:00) Lorazepam (Ativan) (03/25/17 16:00) Lorazepam Inj (Ativan Inj) (03/25/17 16:00) Lorazepam Inj (Ativan Inj) (03/25/17 16:00) Lorazepam Inj (Ativan Inj) (03/25/17 16:00) Nicotine 21 Mg Patch.24 Hr (Habitrol 21 (03/25/17 16:00) Diet Regular Basic (03/25/17 Dinner) Diet Regular Basic (03/26/17 Breakfast) Ibuprofen (Motrin) (03/26/17 08:15) Ed Discharge Order (03/26/17 10:21) Labs Laboratory Tests Test 03/25/17 12:00 White Blood Count 6.5 TH/MM3 Red Blood Count 4.72 MIL/MM3 Hemoglobin 16.3 GM/DL Hematocrit 46.3 % Mean Corpuscular Volume 98.1 FL Mean Corpuscular Hemoglobin 34.5 PG Mean Corpuscular Hemoglobin Concent 35.2 % Red Cell Distribution Width 13.4 % Platelet Count 174 TH/MM3 Mean Platelet Volume 7.6 FL Neutrophils (%) (Auto) 51.3 % Lymphocytes (%) (Auto) 39.8 % Monocytes (%) (Auto) 8.0 % Eosinophils (%) (Auto) 0.6 % Basophils (%) (Auto) 0.3 % Neutrophils # (Auto) 3.4 TH/MM3 Lymphocytes # (Auto) 2.6 TH/MM3 Monocytes # (Auto) 0.5 TH/MM3 Eosinophils # (Auto) 0.0 TH/MM3 Basophils # (Auto) 0.0 TH/MM3 CBC Comment DIFF FINAL Differential Comment Urine Color YELLOW Urine Turbidity CLEAR Urine pH 5.5 Urine Specific [place] 1.005 Urine Protein NEG mg/dL Urine Glucose (UA) TRACE mg/dL Urine Ketones NEG mg/dL Urine Occult Blood NEG Urine Nitrite NEG Urine Bilirubin NEG Urine Urobilinogen LESS THAN 2.0 MG/DL Urine Leukocyte Esterase NEG Urine RBC LESS THAN 1 /hpf Urine WBC LESS THAN 1 /hpf Urine Mucus FEW /lpf Microscopic Urinalysis Comment CULT NOT INDICATED Blood Urea Nitrogen 4 MG/DL Creatinine 0.70 MG/DL Random Glucose 100 MG/DL Total Protein 7.9 GM/DL Albumin 3.9 GM/DL Calcium Level 8.3 MG/DL Alkaline Phosphatase 54 U/L Aspartate Amino Transf (AST/SGOT) 87 U/L Alanine Aminotransferase (ALT/SGPT) 73 U/L Total Bilirubin 0.5 MG/DL Sodium Level 140 MEQ/L Potassium Level 4.0 MEQ/L Chloride Level 107 MEQ/L Carbon Dioxide Level 23.4 MEQ/L Anion Gap 10 MEQ/L Estimat Glomerular Filtration Rate 116 ML/MIN Lipase 1070 U/L Urine Opiates Screen NEG Urine Barbiturates Screen NEG Urine Amphetamines Screen NEG Urine Benzodiazepines Screen NEG Urine Cocaine Screen NEG Urine Cannabinoids Screen POS Ethyl Alcohol Level 344 MG/DL MDM Supervised Visit with KRISTIN: Yes Narrative Course Patient seen and examined by me this morning as psych screener thinks that the patient is stable for discharge. Patient presented emergency department heavily intoxicated last night under Esparza act for making suicidal statements. Patient states he was just on hard times because his rent was late, he states he wants to get to work so he can apologized was possibly being late and then start working again. He adamantly denies any suicidal homicidal ideation at this time, denies audiovisual hallucinations, he's been in the emergency department long enough to metabolize ALCOHOL, has no medical complaints or further workup. After spending some time talking with this gentleman he has plans for today and contracts for safety and has not demonstrated to me to be a threat to himself or to others nor greatly disabled. He does no longer meet Esparza act criteria, as Esparza act was lifted and he will be discharged to self- care. Diagnosis Primary Impression: Alcohol abuse with alcohol-induced mood disorder Additional Impressions: Medical clearance for psychiatric admission Depression with suicidal ideation Alcoholism Pancreatitis, alcoholic, acute Qualified Codes: K85.20 - Alcohol induced acute pancreatitis without necrosis or infection Referrals: [facility] Scripts No Active Prescriptions or Reported Meds Disposition: 01 DISCHARGE HOME Condition: Stable Can Reeder MD Mar 26, 2017 10:21
== END 2017-03-26 10:40 | disposition home or self-care (01) ==
LOC: NEDAMB 11:00 → NEPJ 03-26 10:40
DX: F10.24 Alcohol dependence with alcohol-induced mood disorder (principal); K85.20 Alcohol induced acute pancreatitis without necrosis or infection; F17.200 Nicotine dependence, unspecified, uncomplicated; F20.9 Schizophrenia, unspecified; F31.9 Bipolar disorder, unspecified; Y90.8 Blood alcohol level of 240 mg/100 ml or more
CPT/HCPCS: 80053; 80307; 81001; 83690; 85025; 96365; 96366; 96375; 99284; J2060; J3411; J7030

== ENCOUNTER 2017-03-28 20:45 | Emergency (ER) | payer SELFPAY ==
[~2017-03-28] VITALS: Ht 177.8 cm; Wt 82.0 kg
[2017-03-28 20:52] VITALS: BP 137/90; PULSE 118; RESP 22; TEMP 97.8; O2SAT 97
--- NOTE | 2017-03-28 21:12 | PD ---
HPI Chief Complaint: Pain: Acute or Chronic Time Seen by Provider: 20:58 Travel History International Travel<30 days: No Contact w/Intl Traveler<30days: No Traveled to known affect area: No History of Present Illness HPI 56-year-old male complains of bilateral shoulder pain. Patient states that he drank a gallon of vodka today. Patient has history of EtOH abuse. Patient states that he has bilateral shoulder pain for the past few months. Patient denies any injury to the shoulder. Patient states that the shoulder pain is aching pain constant pain localized to bilateral shoulder area. Patient denies any pain radiation. Patient states the pain is not worse with movement. Patient denies any headache. Patient denies any neck pain. Patient denies any chest pain or shortness of breath. Patient denies abdominal pain. Patient denies any focal weakness or numbness of extremity. PFSH Past Medical History Hx Anticoagulant Therapy: No Arthritis: Yes (KNEES AND ANKLES) Asthma: No Bipolar Disorder: Yes Anxiety: Yes Depression: Yes Heart Rhythm Problems: No Cancer: No Cardiovascular Problems: Yes High Cholesterol: No Chest Pain: Yes Congestive Heart Failure: No COPD: No Cerebrovascular Accident: Yes (tia) Diabetes: No Diminished Hearing: No Endocrine: No Gastrointestinal Disorders: No GERD: No Genitourinary: No Headaches: No Hiatal Hernia: No Hypertension: Yes Implanted Vascular Access Dvce: No Insomnia: Yes Kidney Stones: No Musculoskeletal: Yes Neurologic: No Psychiatric: Yes Reproductive: No Respiratory: No Immunizations Current: No Migraines: No Pancreatitis: Yes (DENIES, IN PT HX) Renal Failure: No Schizophrenia: Yes Seizures: No Sleep Apnea: No Thyroid Disease: No Ulcer: No ?: Not Past Surgical History Abdominal Surgery: No Arteriovenous Shunt: No Cardiac Surgery: No Ear Surgery: No Endocrine Surgery: No Eye Surgery: No Genitourinary Surgery: No Insulin Pump: No Neurologic Surgery: No Oral Surgery: No Thoracic Surgery: No Tonsillectomy: Yes Other Surgery: Yes Social History Alcohol Use: Yes (5-6 DRINKS DAILY) Tobacco Use: Yes (2 PPD) Substance Use: Yes (several 211s, 2ppd, marijuana) Allergies-Medications (Allergen,Severity, Reaction): Coded Allergies: morphine (Unverified Allergy, Severe, Rash, 03/25/17) Reported Meds & Prescriptions Reported Meds & Active Scripts Active No Active Prescriptions or Reported Medications Review of Systems General / Constitutional: No: Fever Eyes: No: Visual changes HENT: No: Headaches Cardiovascular: No: Chest Pain or Discomfort Respiratory: No: Shortness of Breath Gastrointestinal: No: Abdominal Pain Genitourinary: No: Dysuria Musculoskeletal: Positive: Pain Skin: No Rash Neurologic: No: Weakness Psychiatric: No: Depression Endocrine: No: Polydipsia Hematologic/Lymphatic: No: Easy Bruising Physical Exam Narrative GENERAL: Well-nourished, well-developed patient. SKIN: Focused skin assessment warm/dry. HEAD: Normocephalic. EYES: No scleral icterus. No injection or drainage. NECK: Supple, trachea midline. No JVD or lymphadenopathy. CARDIOVASCULAR: Regular rate and rhythm without murmurs, gallops, or rubs. RESPIRATORY: Breath sounds equal bilaterally. No accessory muscle use. GASTROINTESTINAL: Abdomen soft, non-tender, nondistended. MUSCULOSKELETAL: Patient has mild diffuse tenderness over the bilateral shoulder area. Full range of motion all shoulders. No redness no heat no swelling no deformity noted. Sensorimotor function distally intact. BACK: Nontender without obvious deformity. No CVA tenderness. Neurologic exam: Patient's intoxicated however answer questions appropriately. Patient moves all extremity well. No obvious focal neurological deficit. Data Data Last Documented VS Vital Signs Date Time Temp Pulse Resp B/P (MAP) Pulse Ox O2 Delivery O2 Flow Rate FiO2 03/28/17 20:52 97.8 118 22 137/90 (106) 97 Orders Orders Shoulder, Limited(2vws) (03/28/17 21:07) Shoulder, Limited(2vws) (03/28/17 21:07) [facility] Medical Decision Making Medical Screen Exam Complete: Yes Emergency Medical Condition: Yes Interpretation(s) Last Impressions Shoulder X-Ray 03/28/172106 Signed Impressions: Service Date/Time: Tuesday, March 28, 2017 21:11 - CONCLUSION: Unremarkable limited examination of the right shoulder. Villa Arndt MD Shoulder X-Ray 03/28/172106 Signed Impressions: Service Date/Time: Tuesday, March 28, 2017 21:11 - CONCLUSION: Unremarkable limited examination of the left shoulder. Villa Arndt MD Differential Diagnosis Differential diagnosis including tendinitis, bursitis, osteoarthritis, fracture , dislocation. Narrative Course 56-year-old male with bilateral shoulder pain for the past few months. Nontraumatic. Patient has history of EtOH abuse. Patient refused blood tests today. Patient refused any IV fluid or medication today. 20 2:14 PM. Patient is awake and alert and steady on his feet. Patient can walk and ambulate without any problem. Patient will be discharged home on a taxi. Diagnosis Primary Impression: Shoulder arthralgia Qualified Codes: M25.511 - Pain in right shoulder; M25.512 - Pain in left shoulder Additional Impression: ALCOHOL ABUSE, UNCOMPLICATED Patient Instructions: General Instructions Additional Instructions: Advised [facility]. Advil as needed for shoulder pain. Scripts No Active Prescriptions or Reported Meds Disposition: 01 DISCHARGE HOME Condition: Stable Hipolito Henry MD Mar 28, 2017 21:12
--- NOTE | 2017-03-28 21:57 | RADRPT ---
EXAM DATE/TIME: 03/28/2017 21:11 [facility] COMPARISON: No previous studies available for comparison. INDICATIONS : Right shoulder pain, no trauma. MEDICAL HISTORY : Smoker. SURGICAL HISTORY : None. ENCOUNTER: Initial ACUITY: 3 months PAIN SCORE: 10/10 LOCATION: Right shoulder joint. FINDINGS: Two view examination of the right shoulder demonstrates no evidence of fracture or dislocation. The glenohumeral and acromioclavicular joints are maintained. Bony mineralization is normal. CONCLUSION: Unremarkable limited examination of the right shoulder. Villa Arndt MD on March 28, 2017 at 21:56 Board Certified Radiologist. This report was verified electronically.
--- NOTE | 2017-03-28 21:57 | RADRPT ---
EXAM DATE/TIME: 03/28/2017 21:11 [facility] COMPARISON: No previous studies available for comparison. INDICATIONS : Left shoulder pain, no trauma. MEDICAL HISTORY : Smoker. SURGICAL HISTORY : None. ENCOUNTER: Initial ACUITY: 3 months PAIN SCORE: 10/10 LOCATION: Left shoulder joint. FINDINGS: Two view examination of the left shoulder demonstrates no evidence of fracture or dislocation. The g lenohumeral and acromioclavicular joints are maintained. Bony mineralization is normal. CONCLUSION: Unremarkable limited examination of the left shoulder. Villa Arndt MD on March 28, 2017 at 21:55 Board Certified Radiologist. This report was verified electronically.
[2017-03-28 22:24] VITALS: BP 142/78
== END 2017-03-28 22:15 | disposition home or self-care (01) ==
LOC: PHED 20:45
DX: M25.511 Pain in right shoulder (principal); M25.512 Pain in left shoulder; F10.10 Alcohol abuse, uncomplicated; I10 Essential (primary) hypertension; F17.200 Nicotine dependence, unspecified, uncomplicated; Z87.39 Personal history of other diseases of the musculoskeletal system and connective tissue; Z86.59 Personal history of other mental and behavioral disorders; Z86.79 Personal history of other diseases of the circulatory system
CPT/HCPCS: 73030; 99283

== ENCOUNTER 2017-03-29 19:01 | Emergency (ER) | payer OTHER ==
[~2017-03-29] VITALS: Ht 177.8 cm; Wt 75.0 kg
[2017-03-29 19:06] VITALS: BP 125/90; PULSE 91; RESP 16; TEMP 98; O2SAT 92
[2017-03-29 20:57] LABS: BLOOD, URINE NEG (NEG); COMMENT (UR) CULT NOT INDICATED; CULTURE IF INDICATED CULT NOT INDICATED; GLUCOSE,URINE NEG (NEG); HYALINE CAST, URINE 1 /lpf (RARE); KETONE, URINE TRACE mg/dL (NEG); MUCUS URINE FEW /lpf (OCC); NITRITE,URINE NEG (NEG); PH, URINE 5.5 (5.0-8.5); URINE COLOR YELLOW (YELLW/STRAW)
--- NOTE | 2017-03-29 21:12 | PD ---
HPI Chief Complaint: Psychiatric Symptoms Time Seen by Provider: 21:11 Travel History International Travel<30 days: No Contact w/Intl Traveler<30days: No Traveled to known affect area: No History of Present Illness HPI 56-year-old male with history of alcohol dependency presents to the emergency department under a Esparza act for psychiatric evaluation. Patient has been drinking and became depressed. He contacted the [place] help line and made suicidal statements. Patient states that these were in the moment and he is not currently suicidal. He is reporting bilateral shoulder pain which is chronic for him and right upper quadrant abdominal pain. He is not nauseous and has not been vomiting. He has no other symptoms to report. PFSH Past Medical History Hx Anticoagulant Therapy: No Arthritis: Yes (KNEES AND ANKLES) Asthma: No Bipolar Disorder: Yes Anxiety: Yes Depression: Yes Heart Rhythm Problems: No Cancer: No Cardiovascular Problems: Yes High Cholesterol: No Chest Pain: Yes Congestive Heart Failure: No COPD: No Cerebrovascular Accident: Yes (tia) Diabetes: No Diminished Hearing: No Endocrine: No Gastrointestinal Disorders: No GERD: No Genitourinary: No Headaches: No Hiatal Hernia: No Hypertension: Yes Implanted Vascular Access Dvce: No Insomnia: Yes Kidney Stones: No Musculoskeletal: Yes Neurologic: No Psychiatric: Yes Reproductive: No Respiratory: No Immunizations Current: No Migraines: No Pancreatitis: Yes (DENIES, IN PT HX) Renal Failure: No Schizophrenia: Yes Seizures: No Sleep Apnea: No Thyroid Disease: No Ulcer: No Past Surgical History Abdominal Surgery: No Arteriovenous Shunt: No Cardiac Surgery: No Ear Surgery: No Endocrine Surgery: No Eye Surgery: No Genitourinary Surgery: No Insulin Pump: No Neurologic Surgery: No Oral Surgery: No Thoracic Surgery: No Tonsillectomy: Yes Other Surgery: Yes Social History Alcohol Use: Yes (5-6 DRINKS DAILY) Tobacco Use: Yes (2 PPD) Substance Use: Yes (HEROINE, marijuana) Allergies-Medications (Allergen,Severity, Reaction): Coded Allergies: morphine (Verified Allergy, Severe, Rash, 03/29/17) Reported Meds & Prescriptions Reported Meds & Active Scripts Active No Active Prescriptions or Reported Medications Review of Systems Except as stated in HPI: all other systems reviewed are Neg Physical Exam Narrative GENERAL: Unkempt male patient, in no acute distress. SKIN: Focused skin assessment warm/dry. HEAD: Atraumatic. Normocephalic. EYES: Pupils equal and round. No scleral icterus. No injection or drainage. ENT: No nasal bleeding or discharge. Mucous membranes pink and moist. NECK: Trachea midline. No JVD. CARDIOVASCULAR: Elevated rate and rhythm. No murmur appreciated. RESPIRATORY: No accessory muscle use. Clear to auscultation. Breath sounds equal bilaterally. GASTROINTESTINAL: Abdomen soft, nondistended. Right upper quadrant tenderness. Hepatomegaly. MUSCULOSKELETAL: No obvious deformities. No clubbing. No cyanosis. No edema. NEUROLOGICAL: Awake and alert. No obvious cranial nerve deficits. Motor grossly within normal limits. Normal speech. Data Data Last Documented VS Vital Signs Date Time Temp Pulse Resp B/P (MAP) Pulse Ox O2 Delivery O2 Flow Rate FiO2 03/29/17 19:41 (102) 03/29/17 19:06 98.0 91 16 92 Orders Orders Complete Blood Count With Diff (03/29/17 19:46) Comprehensive Metabolic Panel (03/29/17 19:46) Urinalysis - C+S If Indicated (03/29/17 19:46) Drug Screen, Random Urine (03/29/17 19:46) Alcohol (Ethanol) (03/29/17 19:46) Psych Screen (03/29/17 19:46) Diet Regular Basic (03/30/17 Breakfast) Alcohol Withdrawal Asmt-Ciwa ONCE (03/29/17 22:09) Flumazenil Inj (Romazicon Inj) (03/29/17 22:15) Lorazepam (Ativan) (03/29/17 22:15) Lorazepam Inj (Ativan Inj) (03/29/17 22:15) Lorazepam (Ativan) (03/29/17 22:15) Lorazepam Inj (Ativan Inj) (03/29/17 22:15) Lorazepam Inj (Ativan Inj) (03/29/17 22:15) Lorazepam Inj (Ativan Inj) (03/29/17 22:15) Ibuprofen (Motrin) (03/29/17 22:45) Labs Laboratory Tests Test 03/29/17 20:13 03/29/17 21:58 Urine Color YELLOW Urine Turbidity CLEAR Urine pH 5.5 Urine Specific [place] 1.009 Urine Protein NEG mg/dL Urine Glucose (UA) NEG mg/dL Urine Ketones TRACE mg/dL Urine Occult Blood NEG Urine Nitrite NEG Urine Bilirubin NEG Urine Urobilinogen 4.0 MG/DL Urine Leukocyte Esterase NEG Urine RBC LESS THAN 1 /hpf Urine WBC 1 /hpf Urine Hyaline Casts 1 /lpf Urine Mucus FEW /lpf Microscopic Urinalysis Comment CULT NOT INDICATED Urine Opiates Screen NEG Urine Barbiturates Screen NEG Urine Amphetamines Screen NEG Urine Benzodiazepines Screen POS Urine Cocaine Screen NEG Urine Cannabinoids Screen NEG White Blood Count 6.6 TH/MM3 Red Blood Count 5.11 MIL/MM3 Hemoglobin 17.8 GM/DL Hematocrit 50.4 % Mean Corpuscular Volume 98.6 FL Mean Corpuscular Hemoglobin 34.9 PG Mean Corpuscular Hemoglobin Concent 35.4 % Red Cell Distribution Width 13.1 % Platelet Count 114 TH/MM3 Mean Platelet Volume 9.0 FL Neutrophils (%) (Auto) 41.7 % Lymphocytes (%) (Auto) 48.9 % Monocytes (%) (Auto) 6.0 % Eosinophils (%) (Auto) 2.6 % Basophils (%) (Auto) 0.8 % Neutrophils # (Auto) 2.7 TH/MM3 Lymphocytes # (Auto) 3.2 TH/MM3 Monocytes # (Auto) 0.4 TH/MM3 Eosinophils # (Auto) 0.2 TH/MM3 Basophils # (Auto) 0.1 TH/MM3 CBC Comment DIFF FINAL Differential Comment Blood Urea Nitrogen 9 MG/DL Creatinine 0.74 MG/DL Random Glucose 117 MG/DL Total Protein 7.7 GM/DL Albumin 3.4 GM/DL Calcium Level 8.2 MG/DL Alkaline Phosphatase 75 U/L Aspartate Amino Transf (AST/SGOT) 604 U/L Alanine Aminotransferase (ALT/SGPT) 208 U/L Total Bilirubin 0.8 MG/DL Sodium Level 136 MEQ/L Potassium Level 4.1 MEQ/L Chloride Level 103 MEQ/L Carbon Dioxide Level 23.1 MEQ/L Anion Gap 10 MEQ/L Estimat Glomerular Filtration Rate 109 ML/MIN Ethyl Alcohol Level 282 MG/DL [facility] Medical Decision Making Medical Screen Exam Complete: Yes Emergency Medical Condition: Yes Medical Record Reviewed: Yes Differential Diagnosis Alcohol-induced mood disorder versus personality disorder versus substance abuse versus electrolyte abnormality Narrative Course 56-year-old male presents emergency department for evaluation under Esparza act. Patient appears without distress. He is denying suicidal homicidal ideations. Laboratory Tests Test 03/29/17 20:13 03/29/17 21:58 Urine Color YELLOW Urine Turbidity CLEAR Urine pH 5.5 Urine Specific [place] 1.009 Urine Protein NEG mg/dL Urine Glucose (UA) NEG mg/dL Urine Ketones TRACE mg/dL Urine Occult Blood NEG Urine Nitrite NEG Urine Bilirubin NEG Urine Urobilinogen 4.0 MG/DL Urine Leukocyte Esterase NEG Urine RBC LESS THAN 1 /hpf Urine WBC 1 /hpf Urine Hyaline Casts 1 /lpf Urine Mucus FEW /lpf Microscopic Urinalysis Comment CULT NOT INDICATED Urine Opiates Screen NEG Urine Barbiturates Screen NEG Urine Amphetamines Screen NEG Urine Benzodiazepines Screen POS Urine Cocaine Screen NEG Urine Cannabinoids Screen NEG White Blood Count 6.6 TH/MM3 Red Blood Count 5.11 MIL/MM3 Hemoglobin 17.8 GM/DL Hematocrit 50.4 % Mean Corpuscular Volume 98.6 FL Mean Corpuscular Hemoglobin 34.9 PG Mean Corpuscular Hemoglobin Concent 35.4 % Red Cell Distribution Width 13.1 % Platelet Count 114 TH/MM3 Mean Platelet Volume 9.0 FL Neutrophils (%) (Auto) 41.7 % Lymphocytes (%) (Auto) 48.9 % Monocytes (%) (Auto) 6.0 % Eosinophils (%) (Auto) 2.6 % Basophils (%) (Auto) 0.8 % Neutrophils # (Auto) 2.7 TH/MM3 Lymphocytes # (Auto) 3.2 TH/MM3 Monocytes # (Auto) 0.4 TH/MM3 Eosinophils # (Auto) 0.2 TH/MM3 Basophils # (Auto) 0.1 TH/MM3 CBC Comment DIFF FINAL Differential Comment Pt's liver enzymes have significantly increased since his visit on 03/25/2017. I have discussed the patient with my attending who recommends rechecking them in the AM but still medically clearing pt for psychiatric screening. Mental health screening discussed with the patient. Psychiatric screen ordered. Diagnosis Primary Impression: Alcohol abuse with alcohol-induced mood disorder Additional Impression: Transaminitis Scripts No Active Prescriptions or Reported Meds Condition: Stable Cheri Hansen Mar 29, 2017 21:12
[2017-03-29] MEDS ORDERED: LORazepam 2 MG TAB PO PRN (22:15)
[2017-03-29] MEDS ORDERED: FLUMAZENIL 0.5 MG/5 ML VIAL IV PUSH PRN (22:15)
[2017-03-29] MEDS ORDERED: LORazepam 1 MG TAB PO PRN (22:15)
[2017-03-29] MEDS ORDERED: LORazepam 2 MG/ML VIAL IV PUSH PRN ×4 (22:15)
[2017-03-29 22:21] LABS: AUTOMATED NEUTROPHIL # 2.7 TH/MM3 (1.8-7.7); BASOPHIL # 0.1 TH/MM3 (0-0.2); BASOPHIL % 0.8 % (0.0-2.0); EOSINOPHIL # 0.2 TH/MM3 (0-0.4); EOSINOPHIL % 2.6 % (0.0-4.0); HEMATOCRIT 50.4 % (39.0-51.0); LYMPH % 48.9 % (9.0-44.0); LYMPHOCYTE # 3.2 TH/MM3 (1.0-4.8); MEAN CELL VOLUME 98.6 FL (80.0-100.0); MEAN CORPUSCULAR HEMOGLOBIN 34.9 PG (27.0-34.0); MEAN CORPUSCULAR HGB CONC 35.4 % (32.0-36.0); NEUT % 41.7 % (16.0-70.0); PLATELET COUNT 114 TH/MM3 (150-450); RED BLOOD COUNT 5.11 MIL/MM3 (4.50-5.90); RED CELL DISTRIBUTION WIDTH 13.1 % (11.6-17.2); WHITE BLOOD COUNT 6.6 TH/MM3 (4.0-11.0)
[2017-03-29 22:23] LABS: HEMO FLAGS DIFF FINAL
[2017-03-29 22:44] LABS: ALCOHOL 282 MG/DL (0-5); ALT (GPT) 208 U/L (12-78); ANION GAP 10 MEQ/L (5-15); AST (GOT) 604 U/L (15-37); BICARBONATE 23.1 MEQ/L (21.0-32.0); BLOOD UREA NITROGEN 9 MG/DL (7-18); CHLORIDE 103 MEQ/L (98-107); GLOMERULAR FILTRATION RATE 109 ML/MIN (>89); POTASSIUM 4.1 MEQ/L (3.5-5.1); SODIUM (NA) 136 MEQ/L (136-145)
[2017-03-29] MEDS ORDERED: IBUPROFEN 800 MG TAB PO ONE (22:45)
[2017-03-29 22:46] LABS: ALKALINE PHOSPHATASE 75 U/L (45-117); TOTAL BILIRUBIN ADULT 0.8 MG/DL (0.2-1.0)
[2017-03-30 06:26] LABS: INDIRECT BILIRUBIN 0.6 MG/DL (0.0-0.8); TOTAL BILIRUBIN ADULT 1.2 MG/DL (0.2-1.0)
--- NOTE | 2017-03-30 06:47 | PD ---
Physical Exam Date Seen by Provider: Mar 30, 2017 Narrative This patient was brought in last night as a Esparza Act. He was intoxicated. He was stating that he was suicidal. He is now sober and states that he is not suicidal. In addition, the patient has elevated liver function studies. I have explained to patient that his liver function studies are likely elevated because of his alcohol abuse. He reports understanding. He states that he knows that he needs to stop drinking. Data Data Last Documented VS Vital Signs Date Time Temp Pulse Resp B/P (MAP) Pulse Ox O2 Delivery O2 Flow Rate FiO2 03/29/17 19:41 (102) 03/29/17 19:06 98.0 91 16 92 Orders Orders Complete Blood Count With Diff (03/29/17 19:46) Comprehensive Metabolic Panel (03/29/17 19:46) Urinalysis - C+S If Indicated (03/29/17 19:46) Drug Screen, Random Urine (03/29/17 19:46) Alcohol (Ethanol) (03/29/17 19:46) Psych Screen (03/29/17 19:46) Diet Regular Basic (03/30/17 Breakfast) Alcohol Withdrawal Asmt-Ciwa ONCE (03/29/17 22:09) Flumazenil Inj (Romazicon Inj) (03/29/17 22:15) Lorazepam (Ativan) (03/29/17 22:15) Lorazepam Inj (Ativan Inj) (03/29/17 22:15) Lorazepam (Ativan) (03/29/17 22:15) Lorazepam Inj (Ativan Inj) (03/29/17 22:15) Lorazepam Inj (Ativan Inj) (03/29/17 22:15) Lorazepam Inj (Ativan Inj) (03/29/17 22:15) Ibuprofen (Motrin) (03/29/17 22:45) Hepatic Functional Panel (03/30/17 06:00) Labs Laboratory Tests Test 03/29/17 20:13 03/29/17 21:58 03/30/17 06:00 Urine Color YELLOW Urine Turbidity CLEAR Urine pH 5.5 Urine Specific [place] 1.009 Urine Protein NEG mg/dL Urine Glucose (UA) NEG mg/dL Urine Ketones TRACE mg/dL Urine Occult Blood NEG Urine Nitrite NEG Urine Bilirubin NEG Urine Urobilinogen 4.0 MG/DL Urine Leukocyte Esterase NEG Urine RBC LESS THAN 1 /hpf Urine WBC 1 /hpf Urine Hyaline Casts 1 /lpf Urine Mucus FEW /lpf Microscopic Urinalysis Comment CULT NOT INDICATED Urine Opiates Screen NEG Urine Barbiturates Screen NEG Urine Amphetamines Screen NEG Urine Benzodiazepines Screen POS Urine Cocaine Screen NEG Urine Cannabinoids Screen NEG White Blood Count 6.6 TH/MM3 Red Blood Count 5.11 MIL/MM3 Hemoglobin 17.8 GM/DL Hematocrit 50.4 % Mean Corpuscular Volume 98.6 FL Mean Corpuscular Hemoglobin 34.9 PG Mean Corpuscular Hemoglobin Concent 35.4 % Red Cell Distribution Width 13.1 % Platelet Count 114 TH/MM3 Mean Platelet Volume 9.0 FL Neutrophils (%) (Auto) 41.7 % Lymphocytes (%) (Auto) 48.9 % Monocytes (%) (Auto) 6.0 % Eosinophils (%) (Auto) 2.6 % Basophils (%) (Auto) 0.8 % Neutrophils # (Auto) 2.7 TH/MM3 Lymphocytes # (Auto) 3.2 TH/MM3 Monocytes # (Auto) 0.4 TH/MM3 Eosinophils # (Auto) 0.2 TH/MM3 Basophils # (Auto) 0.1 TH/MM3 CBC Comment DIFF FINAL Differential Comment Blood Urea Nitrogen 9 MG/DL Creatinine 0.74 MG/DL Random Glucose 117 MG/DL Total Protein 7.7 GM/DL 7.3 GM/DL Albumin 3.4 GM/DL 3.3 GM/DL Calcium Level 8.2 MG/DL Alkaline Phosphatase 75 U/L 71 U/L Aspartate Amino Transf (AST/SGOT) 604 U/L 717 U/L Alanine Aminotransferase (ALT/SGPT) 208 U/L 230 U/L Total Bilirubin 0.8 MG/DL 1.2 MG/DL Sodium Level 136 MEQ/L Potassium Level 4.1 MEQ/L Chloride Level 103 MEQ/L Carbon Dioxide Level 23.1 MEQ/L Anion Gap 10 MEQ/L Estimat Glomerular Filtration Rate 109 ML/MIN Ethyl Alcohol Level 282 MG/DL Direct Bilirubin 0.6 MG/DL Indirect Bilirubin 0.6 MG/DL MDM Supervised Visit with KRISTIN: Yes Narrative Course I, Dr. Arias, have reviewed the advance practice practitioner's documentation and am in agreement, met with the patient face to face, made the diagnosis, and the medical decision making was done by me. *My assessment and Findings: Patient is now sober. He adamantly denies homicidal or suicidal ideation. He admits to alcohol abuse. His Esparza Act will be rescinded and he will be discharged. Diagnosis Primary Impression: Alcohol abuse with alcohol-induced mood disorder Additional Impression: Transaminitis Scripts No Active Prescriptions or Reported Meds Disposition: 01 DISCHARGE HOME Condition: Stable Devora Arias MD Mar 30, 2017 06:47
== END 2017-03-30 07:01 | disposition home or self-care (01) ==
LOC: NEDAMB 19:01 → NEPJ 03-30 07:01
DX: F10.14 Alcohol abuse with alcohol-induced mood disorder (principal); R74.0 Nonspecific elevation of levels of transaminase and lactic acid dehydrogenase [LDH]; M25.512 Pain in left shoulder; M25.511 Pain in right shoulder; G89.29 Other chronic pain; R10.11 Right upper quadrant pain; I10 Essential (primary) hypertension; F31.9 Bipolar disorder, unspecified; F17.200 Nicotine dependence, unspecified, uncomplicated
CPT/HCPCS: 80053; 80076; 80307; 81001; 85025; 99284

== ENCOUNTER 2017-03-30 12:09 | Emergency (ER) | payer OTHER ==
[~2017-03-30] VITALS: Ht 177.8 cm; Wt 70.0 kg
[2017-03-30 12:26] VITALS: BP 143/97; PULSE 100; RESP 18; TEMP 98.2; O2SAT 97
[2017-03-30] MEDS ORDERED: LORazepam 2 MG TAB PO ONE (13:00)
--- NOTE | 2017-03-30 13:13 | PD ---
HPI Chief Complaint: Back/ Neck Pain or Injury Time Seen by Provider: 12:30 Travel History International Travel<30 days: No Contact w/Intl Traveler<30days: No Traveled to known affect area: No History of Present Illness HPI Patient is 56-year-old male who is brought to the emergency room under a Esparza act by PD. As PD, patient called the occupational health and safety adviser as he was drunk today and made suicidal comment. Patient reports "I'm a piece of sh*t and I want to . I am tired of hurting people." Patient reports that a few days ago, he because fed up with the person he was living with and kicked her out of his home. Patient reports that he is an alcoholic and has been drinking heavily. Reports that he also has chronic b/l shoulder pain - he did have imaging yesterday and was told that there were no fractures. 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 Patients esparza act was lifted yesterday and he was not seen by psych [facility] Past Medical History Hx Anticoagulant Therapy: No Arthritis: Yes (KNEES AND ANKLES) Asthma: No Bipolar Disorder: Yes Anxiety: Yes Depression: Yes Heart Rhythm Problems: No Cancer: No Cardiovascular Problems: Yes High Cholesterol: No Chest Pain: Yes Congestive Heart Failure: No COPD: No Cerebrovascular Accident: Yes (tia) Diabetes: No Diminished Hearing: No Endocrine: No Gastrointestinal Disorders: No GERD: No Genitourinary: No Headaches: No Hiatal Hernia: No Hypertension: Yes Implanted Vascular Access Dvce: No Insomnia: Yes Kidney Stones: No Musculoskeletal: Yes Neurologic: No Psychiatric: Yes Reproductive: No Respiratory: No Immunizations Current: No Migraines: No Pancreatitis: Yes (DENIES, IN PT HX) Renal Failure: No Schizophrenia: Yes Seizures: No Sleep Apnea: No Thyroid Disease: No Ulcer: No Past Surgical History Abdominal Surgery: No Arteriovenous Shunt: No Cardiac Surgery: No Ear Surgery: No Endocrine Surgery: No Eye Surgery: No Genitourinary Surgery: No Insulin Pump: No Neurologic Surgery: No Oral Surgery: No Thoracic Surgery: No Tonsillectomy: Yes Other Surgery: Yes Social History Alcohol Use: Yes (5-6 DRINKS DAILY) Tobacco Use: Yes (2 PPD) Substance Use: Yes (HEROINE, marijuana) Allergies-Medications (Allergen,Severity, Reaction): Coded Allergies: morphine (Verified Allergy, Severe, Rash, 03/30/17) DENIES ANY ALLERGIES Reported Meds & Prescriptions Reported Meds & Active Scripts Active No Active Prescriptions or Reported Medications Review of Systems General / Constitutional: No: Fever Eyes: No: Visual changes HENT: No: Headaches Cardiovascular: No: Chest Pain or Discomfort Respiratory: No: Shortness of Breath Gastrointestinal: No: Abdominal Pain Genitourinary: No: Dysuria Musculoskeletal: No: Pain Skin: No Rash Neurologic: No: Weakness Psychiatric: Positive: Depression, Suicidal Ideations, Substance Abuse ( alcohol abuse) Endocrine: No: Polydipsia Hematologic/Lymphatic: No: Easy Bruising Physical Exam Narrative GENERAL: NAD SKIN: Focused skin assessment warm/dry. HEAD: Atraumatic. Normocephalic. EYES: Pupils equal and round. No scleral icterus. No injection or drainage. ENT: No nasal bleeding or discharge. Mucous membranes pink and moist. NECK: Trachea midline. No JVD. CARDIOVASCULAR: Regular rate and rhythm. No murmur appreciated. RESPIRATORY: No accessory muscle use. Clear to auscultation. Breath sounds equal bilaterally. GASTROINTESTINAL: Abdomen soft, non-tender, nondistended. Hepatic and splenic margins not palpable. MUSCULOSKELETAL: No obvious deformities. No clubbing. No cyanosis. No edema. NEUROLOGICAL: Awake and alert. No obvious cranial nerve deficits. Motor grossly within normal limits. Normal speech. PSYCHIATRIC: agitated mood and affect; +si Data Data Last Documented VS Vital Signs Date Time Temp Pulse Resp B/P (MAP) Pulse Ox O2 Delivery O2 Flow Rate FiO2 03/30/17 12:32 98 18 03/30/17 12:26 98.2 143/97 (112) 97 Orders Orders Drug Screen, Random Urine (03/30/17 12:36) Lorazepam (Ativan) (03/30/17 13:00) Psych Screen (03/30/17 12:46) MDM Medical Decision Making Medical Screen Exam Complete: Yes Emergency Medical Condition: Yes Medical Record Reviewed: Yes Interpretation(s) Vital Signs Date Time Temp Pulse Resp B/P (MAP) Pulse Ox O2 Delivery O2 Flow Rate FiO2 03/30/17 12:32 98 18 03/30/17 12:26 98.2 100 18 143/97 (112) 97 Differential Diagnosis alcohol intoxication, depression, si Narrative Course Psychiatric screening labs were ordered yesterday, patient cleared for psychiatric screening Scripts No Active Prescriptions or Reported Meds Zara Henao DO Mar 30, 2017 13:13
--- NOTE | 2017-03-30 17:43 | PD ---
Physical Exam Narrative GENERAL: SKIN: Warm and dry. HEAD: Atraumatic. Normocephalic. EYES: Pupils equal and round. No scleral icterus. No injection or drainage. ENT: No nasal bleeding or discharge. Mucous membranes pink and moist. NECK: Trachea midline. No JVD. CARDIOVASCULAR: Regular rate and rhythm. RESPIRATORY: No accessory muscle use. Clear to auscultation. Breath sounds equal bilaterally. GASTROINTESTINAL: Abdomen soft, non-tender, nondistended. Hepatic and splenic margins not palpable. MUSCULOSKELETAL: Extremities without clubbing, cyanosis, or edema. No obvious deformities. NEUROLOGICAL: Awake and alert. No obvious cranial nerve deficits. Motor grossly within normal limits. Five out of 5 muscle strength in the arms and legs. Normal speech. PSYCHIATRIC: appropriate mood, no si or hi currently.... insight and judgment normal. (please see psychiatrist Dr Ledezma's note for a more thorough evaluation) Data Data Last Documented VS Vital Signs Date Time Temp Pulse Resp B/P (MAP) Pulse Ox O2 Delivery O2 Flow Rate FiO2 03/30/17 12:32 98 18 03/30/17 12:26 98.2 143/97 (112) 97 Orders Orders Drug Screen, Random Urine (03/30/17 12:36) Lorazepam (Ativan) (03/30/17 13:00) Psych Screen (03/30/17 12:46) Diet Regular Basic (03/30/17 Dinner) Diet Regular Basic (03/30/17 Lunch) Labs Laboratory Tests Test 03/30/17 13:00 Urine Opiates Screen NEG Urine Barbiturates Screen NEG Urine Amphetamines Screen NEG Urine Benzodiazepines Screen POS Urine Cocaine Screen NEG Urine Cannabinoids Screen NEG MDM Medical Record Reviewed: Yes Supervised Visit with KRISTIN: No Narrative Course please see Dr Ledezma's note (psychiatrist) who personally evaluated patient at bedside thoroughly and his recommendation is to release/discharge home, no criteria met for admission according to Dr Ledezma and yoo act lift paper form filled and signed by Dr Ledezma in which patient verbally agreed to enter into contract for safety. Diagnosis Primary Impression: medically cleared Patient Instructions: Abuse of Alcohol (ED), General Instructions Scripts No Active Prescriptions or Reported Meds Disposition: DISCHARGE HOME Condition: Stable Lorenzo Mendez MD Mar 30, 2017 17:43
--- NOTE | 2017-03-31 09:50 | PD ---
History of Present Illness Chief Complaint: Psychiatric Symptoms Time Seen by Provider: 12:00 Travel History International Travel<30 Days: No Contact w/Intl Traveler<30days: No Known affected area: No Legal Status Legal Status: Esparza Act History of Present Illness: Patient interviewed at bedside by this physician. Medical record reviewed. Case discussed with patient's nurse. At the time of this interview, the patient is no longer clinically intoxicated. He denies any suicidal or homicidal ideation, plan or intent. He exhibits no psychotic symptoms and no cognitive deficits. He is verbally katina for safety and he is competent to do so. PFSH Past Medical History Hx Anticoagulant Therapy: No Arthritis: Yes (KNEES AND ANKLES) Asthma: No Bipolar Disorder: Yes Anxiety: Yes Depression: Yes Heart Rhythm Problems: No Cancer: No Cardiovascular Problems: Yes High Cholesterol: No Chest Pain: Yes Congestive Heart Failure: No COPD: No Cerebrovascular Accident: Yes (tia) Diabetes: No Diminished Hearing: No Endocrine: No Gastrointestinal Disorders: No GERD: No Genitourinary: No Headaches: No Hiatal Hernia: No Hypertension: Yes Implanted Vascular Access Dvce: No Insomnia: Yes Kidney Stones: No Musculoskeletal: Yes Neurologic: No Psychiatric: Yes Reproductive: No Respiratory: No Immunizations Current: No Migraines: No Pancreatitis: Yes (DENIES, IN PT HX) Renal Failure: No Schizophrenia: Yes Seizures: No Sleep Apnea: No Thyroid Disease: No Ulcer: No Past Surgical History Abdominal Surgery: No Arteriovenous Shunt: No Cardiac Surgery: No Ear Surgery: No Endocrine Surgery: No Eye Surgery: No Genitourinary Surgery: No Insulin Pump: No Neurologic Surgery: No Oral Surgery: No Thoracic Surgery: No Tonsillectomy: Yes Other Surgery: Yes Psychiatric History Psychiatric History Hx Psychiatric Treatment: Patient with a hx of alcohol abuse with alcohol-induced mood disorder. Patient with no psychiatric admissions. History of Inpatient Treatment: Yes Guns or firearms in home: No Social History Hx Alcohol Use: Yes (5-6 DRINKS DAILY) Hx Tobacco Use: Yes (2 PPD) Hx Substance Use: Yes (HEROINE, marijuana) Substance Use Type: Alcohol, Marijuana, Nicotine/Cigarettes, Benzos (Valium, Xanax) Hx of Substance Use Treatment: No Allergies-Medications (Allergen,Severity, Reaction): Coded Allergies: morphine (Verified Allergy, Severe, Rash, 03/30/17) DENIES ANY ALLERGIES Reported Meds & Prescriptions Reported Meds & Active Scripts Active No Active Prescriptions or Reported Medications Review of Systems Except as stated in HPI: all other systems reviewed are Neg Mental Status Examination Appearance: Appropriate Consciousness: Alert Orientation: x4 Motor Activity: Normal gait Speech: Unremarkable Language: Adequate Fund of Knowledge: Adequate Attention and Concentration: Adequate Memory: Unremarkable Mood: Appropriate Affect: Appropriate Thought Process & Associations: Intact Thought Content: Appropriate Hallucination Type: None Delusion Type: None Suicidal Ideation: No Suicidal Plan: No Suicidal Intention: No Homicidal Ideation: No Homicidal Plan: No Homicidal Intention: No Insight: Adequate Judgment: Adequate MDM Medical Decision Making Medical Record Reviewed: Yes Assessment/Plan Patient repeatedly denies any suicidality or homicidality. Verbally katina for safety. Does not meet criteria for Esparaz act or involuntary psychiatric admission. Orders Orders Drug Screen, Random Urine (03/30/17 12:36) Lorazepam (Ativan) (03/30/17 13:00) Psych Screen (03/30/17 12:46) Diet Regular Basic (03/30/17 Dinner) Diet Regular Basic (03/30/17 Lunch) Ed Discharge Order (03/30/17 19:22) Results Vital Signs Date Time Temp Pulse Resp B/P (MAP) Pulse Ox O2 Delivery O2 Flow Rate FiO2 03/30/17 12:32 98 18 03/30/17 12:26 98.2 100 18 143/97 (112) 97 Laboratory Tests Test 03/30/17 13:00 Urine Opiates Screen NEG Urine Barbiturates Screen NEG Urine Amphetamines Screen NEG Urine Benzodiazepines Screen POS Urine Cocaine Screen NEG Urine Cannabinoids Screen NEG Diagnosis Primary Impression: Alcohol abuse with alcohol-induced mood disorder Departure Forms: Tests/Procedures Patient Instructions: General Instructions, Abuse of Alcohol (ED) Prescriptions No Active Prescriptions or Reported Meds Disposition: 01 DISCHARGE HOME Condition: Stable Kendrick Ledezma MD Mar 31, 2017 09:50
== END 2017-03-30 20:10 | disposition home or self-care (01) ==
LOC: NEPD 12:09
DX: F10.24 Alcohol dependence with alcohol-induced mood disorder (principal); F17.200 Nicotine dependence, unspecified, uncomplicated
CPT/HCPCS: 80307; 99283

== ENCOUNTER 2017-09-15 12:39 | Emergency (ER) | payer OTHER ==
[~2017-09-15] VITALS: Ht 177.8 cm; Wt 90.7 kg
[2017-09-15 13:06] VITALS: BP 123/71; PULSE 63; RESP 18; TEMP 98.4; O2SAT 95
[2017-09-15] MEDS ORDERED: predniSONE 20 MG TAB PO ONE (13:30)
[2017-09-15] MEDS ORDERED: BENZ100 PO ×2 (13:31→13:37)
[2017-09-15] MEDS ORDERED: MAGICPED SWISH-SWAL ×2 (13:31→13:37)
[2017-09-15] MEDS ORDERED: PRED10 PO (13:31)
--- NOTE | 2017-09-15 13:36 | PD ---
HPI Chief Complaint: Cold / Flu Symptoms Time Seen by Provider: 13:25 Travel History International Travel<30 days: No Contact w/Intl Traveler<30days: No Traveled to known affect area: No History of Present Illness HPI 57-year-old male presents emergency department complaining of a sore throat, nonproductive cough, and congestion since Thursday. Says that his sore throat is located on both sides and is mild and irritating. Says that he lost his voice today and decided to come to the emergency department. He denies fevers or chills. Denies shortness of breath, drooling, or chest pain. Patient says he smokes almost 2 packs per day of cigarettes. PFSH Past Medical History Hx Anticoagulant Therapy: No Arthritis: Yes (KNEES AND ANKLES) Asthma: No Bipolar Disorder: Yes Anxiety: Yes Depression: Yes Heart Rhythm Problems: No Cancer: No Cardiovascular Problems: Yes High Cholesterol: No Chest Pain: Yes Congestive Heart Failure: No COPD: No Cerebrovascular Accident: Yes Diabetes: No Diminished Hearing: No Endocrine: No Gastrointestinal Disorders: No GERD: No Genitourinary: No Headaches: No Hiatal Hernia: No Hypertension: Yes Implanted Vascular Access Dvce: No Insomnia: Yes Kidney Stones: No Musculoskeletal: Yes Neurologic: No Psychiatric: Yes Reproductive: No Respiratory: No Immunizations Current: No Migraines: No Pancreatitis: Yes (DENIES, IN PT HX) Renal Failure: No Schizophrenia: Yes Seizures: No Sleep Apnea: No Thyroid Disease: No Ulcer: No Past Surgical History Abdominal Surgery: No Arteriovenous Shunt: No Cardiac Surgery: No Ear Surgery: No Endocrine Surgery: No Eye Surgery: No Genitourinary Surgery: No Insulin Pump: No Neurologic Surgery: No Oral Surgery: No Thoracic Surgery: No Tonsillectomy: Yes Other Surgery: Yes Social History Alcohol Use: Yes (5-6 DRINKS DAILY) Tobacco Use: Yes (2 PPD) Substance Use: Yes (HEROINE, marijuana) Allergies-Medications (Allergen,Severity, Reaction): Coded Allergies: morphine (Verified Allergy, Severe, Rash, 09/15/17) DENIES ANY ALLERGIES Reported Meds & Prescriptions Reported Meds & Active Scripts Active Tessalon Perles (Benzonatate) 100 Mg Cap 100 Mg PO TID PRN 3 Days Magic Mouthwash Pediatric/Adult Liq (Lidocaine/Diphenhydr/Alum/Mg/Simeth) 60 Ml Susp 5 Ml SWISH-SWAL ACHS 10 Days Each 5mL contains: Diphenydramine 4.5mg, Viscous Lidocaine 2% 10mg, Maalox Advanced Regular Strength 2.7ml Prednisone 10 Mg Tab 10 Mg PO DAILY 7 Days Review of Systems Except as stated in HPI: all other systems reviewed are Neg Physical Exam Narrative GENERAL: Well developed, well-nourished in mild distress, sounds nasal SKIN: Focused skin assessment warm/dry. HEAD: Atraumatic. Normocephalic. EYES: Pupils equal and round. No scleral icterus. No injection or drainage. ENT: No nasal bleeding or discharge. Mucous membranes pink and moist. NECK: Trachea midline. No JVD. Mild lymphadenopathy left greater than right. No meningismus CARDIOVASCULAR: Regular rate and rhythm. No murmur appreciated. RESPIRATORY: No accessory muscle use. Clear to auscultation. Breath sounds equal bilaterally. MUSCULOSKELETAL: No obvious deformities. No clubbing. No cyanosis. No edema. NEUROLOGICAL: Awake and alert. No obvious cranial nerve deficits. Motor grossly within normal limits. Normal speech. PSYCHIATRIC: Appropriate mood and affect; insight and judgment normal. Data Data Last Documented VS Vital Signs Date Time Temp Pulse Resp B/P (MAP) Pulse Ox O2 Delivery O2 Flow Rate FiO2 09/15/17 13:06 98.4 63 18 123/71 (88) 95 Orders Orders Prednisone (Deltasone) (09/15/17 13:30) Ed Discharge Order (09/15/17 13:38) [facility] Medical Decision Making Medical Screen Exam Complete: Yes Emergency Medical Condition: Yes Differential Diagnosis influenza, URI, pneumonia, bronchitis, pneumonitis, bronchospasm, allergic rhinitis, viral pharyngitis Narrative Course 57-year-old male presents emergency department complaining of a sore throat, nonproductive cough, and congestion since Thursday. Says that his sore throat is located on both sides and is mild and irritating. Says that he lost his voice today and decided to come to the emergency department. He denies fevers or chills. Denies shortness of breath or chest pain. Patient says he smokes almost 2 packs per day of cigarettes. Vital signs are stable. Physical exam findings consistent with pharyngitis. No tonsillar bulging or erythema. Mild lymphadenopathy left greater than right. No meningismus. Prednisone 20 mg administered in the emergency department. He will be discharged with Tessalon Perles, prednisone, and Magic mouthwash. He says that his sore throat is very irritating and would like something to help relieve his symptoms. Patient advised to follow-up with primary care physician. Return for worsening or persistent symptoms. Diagnosis Primary Impression: Pharyngitis Qualified Codes: J02.9 - Acute pharyngitis, unspecified Referrals: [facility] Departure Forms: Tests/Procedures, Work Release Enter return to work date: September 17, 2017 Additional Instructions: You may use a drop of honey and lemon in a cup of warm water to soothe your cough. (If you are greater than 1 year old ) Ensure good hydration and a nutritious diet. Note that viral infection symptoms may last for several weeks if you have a viral illness. Follow up with your primary physician within 2-3 days. Return to the ED for worsening or persistent symptoms. Take all medications as prescribed. Scripts Benzonatate (Tessalon Perles) 100 Mg Cap 100 MG PO TID Y for COUGH for 3 Days, CAP 0 Refills Prov: Zara Henao DO 09/15/17 Yflgenqyabjjppb-Hmttyndwx-Qae-Alum-Simeth Liq (Magic Mouthwash Pediatric/Adult Liq) 60 Ml Susp 5 ML SWISH-SWAL ACHS for Mouth sores for 10 Days, #60 ML 0 Refills Each 5mL contains: Diphenydramine 4.5mg, Viscous Lidocaine 2% 10mg, Maalox Advanced Regular Strength 2.7ml Prov: Zara Henao DO 09/15/17 Prednisone (Prednisone) 10 Mg Tab 10 MG PO DAILY for 7 Days, #7 TAB 0 Refills Prov: Zara Henao DO 09/15/17 Disposition: 01 DISCHARGE HOME Condition: Stable Shaina Garcia September 15, 2017 13:36
== END 2017-09-15 14:02 | disposition home or self-care (01) ==
LOC: PHEFT 12:39
DX: J02.9 Acute pharyngitis, unspecified (principal); R05 Cough; R09.81 Nasal congestion; R59.1 Generalized enlarged lymph nodes; F31.9 Bipolar disorder, unspecified; F41.9 Anxiety disorder, unspecified; I10 Essential (primary) hypertension; F17.210 Nicotine dependence, cigarettes, uncomplicated; Z86.73 Personal history of transient ischemic attack (TIA), and cerebral infarction without residual deficits
CPT/HCPCS: 99283; J7512